=== PATIENT | female | born 1940 | race American Indian/Alaskan Native ===

== ENCOUNTER 2017-12-13 20:10 | Inpatient (IN) | payer MEDICARE, MEDICAID ==
[2017-12-13] MEDS ORDERED: Sodium Chloride 0.9% 1,000 ML IV ONE (20:22)
--- NOTE | 2017-12-13 20:22 | C.PDOC ---
History Of Present Illness The patient presents to the ED after being sent from alf for evaluation of change in mental status which has been worsening for the past 3 weeks. Patient was found to be less responsive today and now presents for further evaluation. Additional information limited secondary to patient's nonverbal status. Time Seen by Provider: 12/13/17 20:19 Chief Complaint (Nursing): Altered Mental Status History/Exam Limitations: Clinical Condition Onset/Duration Of Symptoms: Other (3 weeks ) Onset Of Symptoms: Cannot Confirm Onset Current Symptoms Are (Timing): Still Present Usual Baseline: Non-verbal Exacerbating Factor(s): Unknown Past Medical History Reviewed: Historical Data, Nursing Documentation, Vital Signs Vital Signs: Last Vital Signs Temp 99.2 F 12/13/17 20:55 Pulse 114 H 12/13/17 20:12 Resp 20 12/13/17 20:12 BP 127/73 12/13/17 20:12 Pulse Ox 100 12/13/17 22:27 - Medical History PMH: HTN, Hypercholesterolemia Surgical History: Cholecystectomy Family History: States: No Known Family Hx - Social History Hx Alcohol Use: No Hx Substance Use: No Review Of Systems Review Of Systems: ROS cannot be obtained secondary to pt's inabilty to answer questions. Physical Exam - Physical Exam Appears: Non-toxic, No Acute Distress Skin: Warm, Dry Head: Normacephalic Eye(s): bilateral: Other (Arcus senilis) Oral Mucosa: Dry Teeth: Edentulous Neck: Supple Chest: Symmetrical, No Deformity, No Tenderness Cardiovascular: Rhythm Regular, No Murmur Respiratory: No Rales, Rhonchi (scattered), No Wheezing Gastrointestinal/Abdominal: Soft, Distention, No Guarding, No Rebound, Other ( obese ) Extremity: Normal ROM, Pedal Edema (trace), Capillary Refill (less than 2 seconds ), Other (necrotic healing ulcer on left foot ) Pulses: Left Dorsalis Pedis: Normal, Right Dorsalis Pedis: Normal ED Course And Treatment - Laboratory Results Result Diagrams: 12/13/17 20:33 12/13/17 20:33 ECG: Interpreted By Me, Viewed By Me ECG Rhythm: Sinus Rhythm (108), Nonspecific Changes O2 Sat by Pulse Oximetry: 100 (on RA ) Pulse Ox Interpretation: Normal - Radiology CXR: Interpreted by Me, Viewed By Me Progress Note: Bloodwork, UA, CXR, EKG ordered and reviewed. Aspirin CA, Zosyn IVP, Vancomycin IVP, and IV fluids administered. Disposition Discussed With : Dami Ruth Comment: accepted the pt on his service and took over the care at 9:38 PM Doctor Will See Patient In The: Hospital Counseled Patient/Family Regarding: Studies Performed, Diagnosis - Disposition Disposition: HOSPITALIZED Disposition Time: 20:22 Condition: GUARDED Forms: [facility] (Azeri) - POA Present On Arrival: Poor Glycemic Control, Pressure Ulcer - Clinical Impression Clinical Impression: NSTEMI (non-ST elevated myocardial infarction), Severe dehydration, Renal insufficiency, Decubitus ulcer, heel, left, unstageable - Scribe Statement The provider has reviewed the documentation as recorded by the Scribe (Ashleigh Callahan) Provider Attestation: All medical record entries made by the Scribe were at my direction and personally dictated by me. I have reviewed the chart and agree that the record accurately reflects my personal performance of the history, physical exam, medical decision making, and the department course for this patient. I have also personally directed, reviewed, and agree with the discharge instructions and disposition.
[2017-12-13 20:33] LABS: VENOUS BLOOD GAS BASE EXCESS -4.8 mmol/L (0.0-2.0); VENOUS BLOOD GAS PCO2 38 mmHg (40-60); VENOUS BLOOD GAS PO2 26 mm/Hg (30-55); VENOUS BLOOD PH 7.34 (7.32-7.43)
[2017-12-13 20:38] LABS: BASO # 0.1 K/uL (0.0-0.2); BASO % 0.6 % (0.0-2.0); EOS % 0.3 % (0.0-4.0); HEMOGLOBIN 11.2 g/dL (11.0-16.0); LYMPH % 5.5 % (20.0-40.0); MEAN CELL VOLUME 93.7 fL (81.0-99.0); MEAN CORPUSCULAR HEMOGLOBIN 30.8 pg (27.0-31.0); MEAN CORPUSCULAR HGB CONC 32.8 g/dL (33.0-37.0); MEAN PLATELET VOLUME 9.1 fL (7.2-11.7); MONO # 1.1 K/uL (0.0-0.8); MONO % 6.1 % (0.0-10.0); NEUT # 15.6 K/uL (1.8-7.0); NEUT % 87.5 % (50.0-75.0); PLATELET COUNT 301 K/uL (130-400); RBC 3.63 Mil/uL (3.80-5.20); RED CELL DISTRIBUTION WIDTH 14.1 % (11.5-14.5); WHITE BLOOD COUNT 17.8 K/uL (4.8-10.8)
[2017-12-13 20:46] LABS: INR 1.2; PROTHROMBIN TIME 13.8 SECONDS (9.7-12.2)
[2017-12-13 20:54] LABS: ALB/GLOB RATIO 0.8 (1.0-2.1); ALBUMIN 3.4 g/dL (3.5-5.0); CALCIUM 8.9 mg/dl (8.6-10.4)
[2017-12-13 21:00] LABS: BASOPHIL 1 % (0-2); EOSINOPHIL 1 % (0-4); LYMPHOCYTE 7 % (20-40); MONOCYTE 6 % (0-10); NEUTROPHIL 85 % (50-75); PLATELET ESTIMATE NORMAL (NORMAL); TOTAL CELLS COUNTED 100
[2017-12-13 21:01] LABS: HYPOCHROMIC SLIGHT; LARGE PLATELETS PRESENT
[2017-12-13 21:12] LABS: SQUAMOUS EPITHIAL < 1 /hpf (0-5); URINE BACTERIA OCC (<OCC); URINE BILIRUBIN NEGATIVE (NEGATIVE); URINE BLOOD NEGATIVE (NEGATIVE); URINE CLARITY Hazy (Clear); URINE COLOR Yellow (YELLOW); URINE GLUCOSE (UA) 1+ mg/dL (Normal); URINE LEUKOCYTE ESTERASE TRACE Leu/uL (Negative); URINE NITRATE NEGATIVE (NEGATIVE); URINE PROTEIN NEGATIVE (NEGATIVE); URINE UROBILINOGEN NORMAL mg/dL (0.2-1.0)
[2017-12-13] MEDS ORDERED: Piperacillin/Tazobact 3.375 gm 100 ML IVPB STA (21:26)
[2017-12-13] MEDS ORDERED: Vancomycin 1 GM 1 GM/250 ML BAG IVPB STA (21:26)
[2017-12-13 21:27] LABS: TROPONIN I 0.164 ng/mL (0.00-0.120)
[2017-12-13] MEDS ORDERED: Vancomycin 1 gm/NS 200 ml 1 GM/200 ML BAG IVPB ONE (22:00)
[2017-12-13] MEDS ORDERED: Piperacill/Tazo 3.375gm in Dex 3.375 GM/50 ML BAG IVPB ONE (22:00)
[2017-12-13] MEDS ORDERED: Piperacillin/Tazobact 2.25 GM in Sodium Chloride 100 ML IVPB SCH (22:00)
[2017-12-13] MEDS ORDERED: Dextrose 5%/0.45% NS 1,000 ML IV SCH (22:00)
[2017-12-13] MEDS ORDERED: Home Med 1 UNIT (Atorvastatin [Lipitor] 20 MG) PO SCH (22:00)
[2017-12-13] MEDS ORDERED: Piperacillin/Tazobact 3.375 GM in Sodium Chloride 0.9% 100 ML IVPB ONE (22:00)
[2017-12-13] MEDS ORDERED: (Novolin R) Insulin Human Regular 100 units/ml vial ONE (22:32)
[2017-12-13] MEDS: (Novolin R) Insulin Human Regular 100 units/ml vial SC SCH (22:35)
[2017-12-13] MEDS: (Lantus) Insulin Glargine, Recombinant SC SCH (22:45)
[2017-12-13] MEDS ORDERED: (Lantus) Insulin Glargine, Recombinant SC ONE (22:46)
[2017-12-13] MEDS: Piperacill/Tazo 2.25gm in Dex 2.25 GM/50 ML BAG IVPB SCH (22:50)
[2017-12-13] MEDS: Sodium Chloride 0.45% 1,000 ML IV SCH (23:55)
[2017-12-14 05:32] LABS: CK-MB 3.63 ng/mL (0.0-3.38); TROPONIN I 0.16 ng/mL (0.00-0.120)
[2017-12-14] MEDS: Piperacill/Tazo 2.25gm in Dex 2.25 GM/50 ML BAG IVPB SCH ×3 (07:12→22:19)
[2017-12-14] MEDS: (Novolin R) Insulin Human Regular 100 units/ml vial SC SCH ×5 (08:20→21:39)
[2017-12-14] MEDS: Sodium Chloride 0.45% 1,000 ML IV SCH ×3 (08:30→22:19)
--- NOTE | 2017-12-14 08:57 | RAD ---
Chest x-ray single frontal view History: Altered mental status. Comparison: None available. Findings: No focal infiltrate or effusion. Tortuous aorta. Heart size within normal limits. Degenerative changes in the spine with paravertebral osteophytes. Surgical clips in the right upper abdomen. Upper lobe granulomatous changes. Impression: No focal infiltrate or effusion. Tortuous aorta.
[2017-12-14] MEDS ORDERED: MEGESTROL 20 MG PO SCH (10:00)
[2017-12-14] MEDS ORDERED: VITAMIN C PO SCH (10:00)
[2017-12-14] MEDS ORDERED: Pantoprazole 40 mg EC Tab PO SCH (10:00)
[2017-12-14] MEDS ORDERED: ASPIRIN 81 MG PO SCH (10:00)
[2017-12-14] MEDS ORDERED: PROTEIN HYDROLYS PO SCH ×2 (10:00→18:00)
[2017-12-14] MEDS ORDERED: VITAMIN B COMPLEX PO SCH (10:00)
[2017-12-14] MEDS ORDERED: ASCORBIC ACID 500 MG PO SCH (10:00)
[2017-12-14] MEDS ORDERED: AMINO ACIDS PO SCH ×2 (10:00→18:00)
--- NOTE | 2017-12-14 10:22 | CP.PCM.PN ---
Subjective - Date & Time of Evaluation Date of Evaluation: 12/14/17 Time of Evaluation: 10:49 - Subjective Subjective: PGY2 Medicine Note for Dr. Ruth; all management as per Dr. Ruth This patient was seen and examined at [facility] with son today; she is unable to provide any subjective history taking; however according to son the mom has been waxing and waning with mental status over the past year or two, with the past 2 weeks being the most severe in decline after she was treated for a UTI in her retirement. He voiced his concerns that if something bad were to happen that he does not want any extreme measures to be taken. DNR/DNI entered Objective - Vital Signs/Intake and Output Vital Signs (last 24 hours): Temp Pulse Resp BP Pulse Ox 97.3 F L 96 H 18 130/86 93 L 12/14/17 06:51 12/14/17 06:51 12/14/17 08:36 12/14/17 06:51 12/14/17 06:51 Intake and Output: 12/14/17 12/14/17 06:59 18:59 Intake Total 1200 Output Total 1000 Balance 200 - Medications Medications: Current Medications Heparin Sodium (Porcine) (Heparin) 5,000 units SC Q12 [facility] Last Admin: 12/13/17 22:49 Dose: 5,000 units Home Med (Amino Acids/Protein Hydrolys [Pro-Stat Profile Liquid Packet]) 30 ml PO BID [facility] Home Med (Ascorbic Acid [Vitamin C]) 500 mg PO DAILY [facility] Home Med (Aspirin [Ecotrin]) 81 mg PO DAILY [facility] Home Med (Atorvastatin [Lipitor]) 20 mg PO HS [facility] Last Admin: 12/13/17 22:49 Dose: Not Given Home Med (Megestrol [Megace]) 20 mg PO DAILY [facility] Home Med (Vitamin B Complex & Vitamin C [Strovite]) 1 tab PO DAILY [facility] Piperacillin Sod/Tazobactam Sod (Zosyn 2.25 Gm Iv Premix) 2.25 gm in 50 mls @ 200 mls/hr IVPB Q8H [facility] Last Admin: 12/14/17 07:12 Dose: 200 mls/hr Sodium Chloride (Sodium Chloride 0.45%) 1,000 mls @ 100 mls/hr IV .Q10H [facility] Last Admin: 12/13/17 23:55 Dose: 100 mls/hr Insulin Glargine (Lantus) 10 unit SC [facility] Last Admin: 12/13/17 22:45 Dose: 10 u Insulin Human Regular (Novolin R) 0 unit SC [facility] PRN Reason: Protocol Lisinopril (Zestril) 20 mg PO DAILY [facility] Medroxyprogesterone Acetate (Provera) 10 mg PO DAILY [facility] Metoprolol Tartrate (Lopressor) 25 mg PO BID [facility] Pantoprazole Sodium (Protonix Ec Tab) 40 mg PO DAILY [facility] Pneumococcal Polyvalent Vaccine (Pneumovax 23 Vaccine) 0.5 ml SC .ONCE ONE Stop: 12/17/17 10:08 Senna/Docusate Sodium (Senokot S 50 Mg-8.6 Mg) 1 tab PO DAILY [facility] Trazodone HCl (Desyrel) 25 mg PO [facility] Last Admin: 12/13/17 22:46 Dose: Not Given - Labs Labs: 12/13/17 20:33 12/13/17 20:33 PT 13.8 SECONDS (9.7-12.2) H 12/13/17 20:33 INR 1.2 12/13/17 20:33 APTT 20 SECONDS (21-34) L 12/13/17 20:33 - Constitutional Appears: No Acute Distress, Cachectic, Chronically Ill - Head Exam Head Exam: ATRAUMATIC - Eye Exam Eye Exam: EOMI, Scleral icterus - ENT Exam ENT Exam: Mucous Membranes Dry - Neck Exam Neck Exam: absent: Full ROM, Lymphadenopathy - Respiratory Exam Respiratory Exam: Rales. absent: Clear to Ausculation Bilateral, Rhonchi, Wheezes, Respiratory Distress - Cardiovascular Exam Cardiovascular Exam: Bradycardia, +S1, +S2 - GI/Abdominal Exam GI & Abdominal Exam: Tenderness (LLQ ), Normal Bowel Sounds - Rectal Exam Rectal Exam: Deferred - Extremities Exam Extremities Exam: Full ROM, Joint Swelling. absent: Calf Tenderness - Back Exam Back Exam: absent: CVA tenderness (L), CVA tenderness (R), NORMAL INSPECTION ( multiple sacral wounds) - Neurological Exam Neurological Exam: Awake. absent: Alert, Oriented x3 - Psychiatric Exam Psychiatric exam: absent: Normal Affect - Skin Skin Exam: Warm (diaphoretic ) Assessment and Plan - Assessment and Plan (Free Text) Assessment: 77yo F admitted for AMS AMS -most likely 2/2 to MODS 2/2 to UTI/wound infection -BUN and [employer] Markedly elevated; troponin elevated; patient is non responsive to commands and only responds to pain -patient has many open sores/wounds; will be cultured; f/u -patient is on abx; Vancomycin and Pip/Tazo; will continue -f/u blood cultures -f/u echo Pressure Ulcers -f/u wound care recs -f/u wound culture -c/w abx -reposition every 2 hours Elevated Troponins -most likely 2/2 to MODS -f/u echo -cardiology is on board; Dr. Hutton; thank you for your help Elevated BUN/Creatinine -Dr. Ballard Nephrology; thank you for your help; will f/u recommendations -BUN 102; will continue to trend; patient is very dehydrated clinically Hx of HTN -c/w home meds Hx of DM -c/w insulin dosing -keep BS between 140-180 Hx of HLD -hold home meds for now 2/2 to liver dysfunction Hx of Poor appetite -c/w with appetite increasing medication Hx of dementia like symptoms -son states patient waxes and wanes between making sense and not over the past year or so -recently had UTI in retirement (2 weeks ago) son states has not been same since -patient unable to render care for self and has multiple wounds from pressure sites Proph -DNR/DNI; conversation with son stated he wants nothing extreme done for mother ; palliative care consult placed; Peggy, f/u recs -Pepcid; will hold protonix in lieu of ARF -Heparin SC
[2017-12-14] MEDS: Docusate-Senna 50 mg-8.6 mg Tab PO SCH (10:45)
[2017-12-14 11:18] LABS: BASO # 0.1 K/uL (0.0-0.2); BASO % 0.5 % (0.0-2.0); EOS # 0.2 K/uL (0.0-0.7); EOS % 1.3 % (0.0-4.0); HEMOGLOBIN 10.5 g/dL (11.0-16.0); LYMPH # 0.9 K/uL (1.0-4.3); LYMPH % 5.9 % (20.0-40.0); MEAN CELL VOLUME 93.8 fL (81.0-99.0); MEAN CORPUSCULAR HEMOGLOBIN 31.3 pg (27.0-31.0); MEAN CORPUSCULAR HGB CONC 33.4 g/dL (33.0-37.0); MONO % 6.4 % (0.0-10.0); NEUT # 12.9 K/uL (1.8-7.0); NEUT % 85.9 % (50.0-75.0); PLATELET COUNT 242 K/uL (130-400); RBC 3.34 Mil/uL (3.80-5.20)
[2017-12-14 11:34] LABS: ALB/GLOB RATIO 0.8 (1.0-2.1); CALCIUM 8.5 mg/dl (8.6-10.4)
[2017-12-14 11:40] LABS: BASOPHIL 2 % (0-2); EOSINOPHIL 2 % (0-4); LYMPHOCYTE 8 % (20-40); MONOCYTE 5 % (0-10); NEUTROPHIL 83 % (50-75); TOTAL CELLS COUNTED 100
[2017-12-14 11:41] LABS: ANISOCYTOSIS SLIGHT; HYPOCHROMIC SLIGHT; OVALOCYTES SLIGHT; PLATELET ESTIMATE NORMAL (NORMAL); POIKILOCYTOSIS SLIGHT
[2017-12-14] MEDS: Metoprolol 1 mg/ml Inj IVP SCH ×2 (12:30→18:00)
[2017-12-14 13:21] LABS: CK-MB 5.06 ng/mL (0.0-3.38); TROPONIN I 0.143 ng/mL (0.00-0.120)
--- NOTE | 2017-12-14 14:25 | CP.PCM.PCO ---
Physician Communication Note - Physician Communication Note Physician Communication Note: Family meeting 10 am tomorrow
--- NOTE | 2017-12-14 15:05 | CP.PCM.CON ---
History of Present Illness - History of Present Illness History of Present Illness: Initial Nephrology Consultation: Assessment: Stable Acute Kidney Injury (N17.9) likely due to dehydration/pre-renal state as also evident by Hypernatremia Anemia HTN Hyperglycemia/DM, AMS Plan No acute need for renal replacement therapy at this time. Hypertension control with meds as ordered. hold ACEI/ARB due to YIN Monitor Input/Output, daily weights and renal function with basic metabolic panel continue with 0.45% saline @ 100 ml/hr will check renal sonogram Dose meds/antibiotics for reduced GFR. Avoid fleets enema/magnesium based laxatives. Avoid nephrotoxins/NSAIDs/ iodinated contrast (unless needed emergently) Glycemic control Further work up/management as per primary team Palliative care involved Thanks for allowing me to participate in care of your patient. Will follow patient with you. Please call if any Qs Dr Milo Martin Office: [phone] Chief Complaint; unable reason for consult: YIN HPI: Pt is a 77 F with hx of hypertension (years), dementia, pressure ulcers presented with complaints of AMS and renal consulted for YIN. pt was noted to have dehydration no known OTC/herbal meds or NSAIDs No known recent iodinated contrast exposure. No obvious episodes of low BP. ROS: pt unable to provide any ROS Physical Examination: General Appearance: Comfortable, in no acute respiratory distress, Vitals reviewed and noted as below Head; Atraumatic, normocephalic ENT: unable EYES: unable Neck; supple no lymphadenopathy, no thyromegaly or bruit Lungs: Normal respiratory rate/effort. Breath sounds bilateral equal and clear Heart: Normal rate. s1s2 normal. No rub or gallop. Extremities: no edema. No varicose veins Neurological: Patient is unresponsive to commands. has contractures in extremities. hx of dementia Skin: Warm and dry. Normal turgor. No rash. Palpitation: Normal elasticity for age Abdomen: Abdomen is soft. Bowel sounds +. There is no abdominal tenderness, no guarding/rigidity no organomegaly Psych: unable MSK: no joint tenderness or swelling. : kidney or bladder not palpable. has recinos Labs/imaging reviewed. Past medical history, past surgical history, family history, social history, allergy reviewed and noted as below Family hx: no hx of CKD. Rest non-contributory Past Patient History - Past Medical History & Family History Past Medical History?: Yes - Past Social History Smoking Status: Never Smoked - CARDIAC Hx Hypercholesterolemia: Yes Hx Hypertension: Yes - PULMONARY Hx Respiratory Disorders: No - NEUROLOGICAL Hx Dementia: Yes (son reports detention staff advised him) - HEENT Hx Cataracts: Yes - RENAL Hx Chronic Kidney Disease: No - ENDOCRINE/METABOLIC Hx Diabetes Mellitus Type 2: Yes - HEMATOLOGICAL/ONCOLOGICAL Hx Shingles: Yes - INTEGUMENTARY Hx Dermatological Problems: No - MUSCULOSKELETAL/RHEUMATOLOGICAL Hx Musculoskeletal Disorders: Yes (LEFT SHOULDER PAIN) Hx Falls: Yes - GASTROINTESTINAL Hx Gall Bladder Disease: Yes - GENITOURINARY/GYNECOLOGICAL Hx Incontinence: Yes Hx Urinary Tract Infection: Yes - PSYCHIATRIC Hx Substance Use: No - SURGICAL HISTORY Hx Cholecystectomy: Yes - ANESTHESIA Hx Anesthesia: Yes Hx Anesthesia Reactions: No Hx Malignant Hyperthermia: No Meds Allergies/Adverse Reactions: Allergies Allergy/AdvReac Type Severity Reaction Status Date / Time No Known Allergies Allergy Verified 12/13/17 20:12 - Medications Medications: Current Medications Famotidine (Pepcid) 20 mg IVP DAILY [facility] Last Admin: 12/14/17 10:45 Dose: Not Given Heparin Sodium (Porcine) (Heparin) 5,000 units SC Q12 [facility] Last Admin: 12/14/17 10:45 Dose: Not Given Home Med (Amino Acids/Protein Hydrolys [Pro-Stat Profile Liquid Packet]) 30 ml PO BID [facility] Last Admin: 12/14/17 10:45 Dose: Not Given Home Med (Ascorbic Acid [Vitamin C]) 500 mg PO DAILY [facility] Last Admin: 12/14/17 10:45 Dose: Not Given Home Med (Aspirin [Ecotrin]) 81 mg PO DAILY [facility] Last Admin: 12/14/17 10:45 Dose: Not Given Home Med (Atorvastatin [Lipitor]) 20 mg PO HS [facility] Last Admin: 12/13/17 22:49 Dose: Not Given Home Med (Megestrol [Megace]) 20 mg PO DAILY [facility] Last Admin: 12/14/17 10:45 Dose: Not Given Home Med (Vitamin B Complex & Vitamin C [Strovite]) 1 tab PO DAILY [facility] Last Admin: 12/14/17 10:45 Dose: Not Given Hydralazine HCl (Apresoline) 10 mg IVP Q6H PRN PRN Reason: high blood pressure Piperacillin Sod/Tazobactam Sod (Zosyn 2.25 Gm Iv Premix) 2.25 gm in 50 mls @ 200 mls/hr IVPB Q8H [facility] Last Admin: 12/14/17 07:12 Dose: 200 mls/hr Sodium Chloride (Sodium Chloride 0.45%) 1,000 mls @ 100 mls/hr IV .Q10H [facility] Last Admin: 12/14/17 11:36 Dose: 100 mls/hr Insulin Glargine (Lantus) 10 unit SC [facility] Last Admin: 12/13/17 22:45 Dose: 10 u Insulin Human Regular (Novolin R) 0 unit SC [facility] PRN Reason: Protocol Last Admin: 12/14/17 12:24 Dose: 6 unit Medroxyprogesterone Acetate (Provera) 10 mg PO DAILY [facility] Last Admin: 12/14/17 10:45 Dose: Not Given Metoprolol Tartrate (Lopressor) 25 mg PO BID [facility] Last Admin: 12/14/17 10:45 Dose: Not Given Metoprolol Tartrate (Lopressor) 5 mg IVP BID [facility] Last Admin: 12/14/17 12:30 Dose: 5 mg Pneumococcal Polyvalent Vaccine (Pneumovax 23 Vaccine) 0.5 ml SC .ONCE ONE Stop: 12/17/17 10:08 Senna/Docusate Sodium (Senokot S 50 Mg-8.6 Mg) 1 tab PO DAILY [facility] Last Admin: 12/14/17 10:45 Dose: Not Given Trazodone HCl (Desyrel) 25 mg PO [facility] Last Admin: 12/13/17 22:46 Dose: Not Given Results - Vital Signs Recent Vital Signs: Last Vital Signs Temp 98.0 F 12/14/17 07:00 Pulse 99 H 12/14/17 12:23 Resp 18 12/14/17 08:36 BP 121/76 12/14/17 12:23 Pulse Ox 93 L 12/14/17 07:00 - Labs Result Diagrams: 12/14/17 11:10 12/14/17 11:10 Labs: Laboratory Results - last 24 hr 12/13/17 12/13/17 12/13/17 20:25 20:33 20:33 WBC 17.8 H RBC 3.63 L Hgb 11.2 Hct 34.0 MCV 93.7 MCH 30.8 MCHC 32.8 L RDW 14.1 Plt Count 301 MPV 9.1 Neut % (Auto) 87.5 H Lymph % (Auto) 5.5 L [place] % (Auto) 6.1 Eos % (Auto) 0.3 Baso % (Auto) 0.6 Neut # (Auto) 15.6 H Lymph # (Auto) 1.0 [place] # (Auto) 1.1 H Eos # (Auto) 0.0 Baso # (Auto) 0.1 Neutrophils % (Manual) 85 H Lymphocytes % (Manual) 7 L Monocytes % (Manual) 6 Eosinophils % (Manual) 1 Basophils % (Manual) 1 Platelet Estimate Normal Large Platelets Present Hypochromasia (manual) Slight Poikilocytosis (manual Anisocytosis (manual) Ovalocytes PT INR APTT pO2 26 L VBG pH 7.34 VBG pCO2 38 L VBG HCO3 19.7 VBG Total CO2 21.7 L VBG O2 Sat (Calc) 47.8 VBG Base Excess -4.8 L VBG Potassium 4.6 Sodium 150.0 H 148 Chloride 121.0 H 114 H Glucose 367 H Lactate 2.1 Potassium 4.6 Carbon Dioxide 19 L Anion Gap 20 BUN 109 H* Creatinine 2.6 H Est GFR ( Amer) 22 Est GFR (Non-Af Amer) 18 POC Glucose (mg/dL) Random Glucose 358 H Calcium 8.9 Total Bilirubin 0.7 AST 39 H ALT 49 Alkaline Phosphatase 127 H Ammonia Total Creatine Kinase CK-MB (Mass) Troponin I 0.1640 H* Total Protein 7.8 Albumin 3.4 L Globulin 4.3 H Albumin/Globulin Ratio 0.8 L Triglycerides Cholesterol LDL Cholesterol Direct HDL Cholesterol Free T4 TSH 3rd Generation Venous Blood Potassium 4.6 Urine Color Urine Clarity Urine pH Ur Specific [place] Urine Protein Urine Glucose (UA) Urine Ketones Urine Blood Urine Nitrate Urine Bilirubin Urine Urobilinogen Ur Leukocyte Esterase Urine WBC (Auto) Urine RBC (Auto) Ur Squamous Epith Cells Urine Bacteria 12/13/17 12/13/17 12/13/17 20:33 20:55 21:00 WBC RBC Hgb Hct MCV MCH MCHC RDW Plt Count MPV Neut % (Auto) Lymph % (Auto) [place] % (Auto) Eos % (Auto) Baso % (Auto) Neut # (Auto) Lymph # (Auto) [place] # (Auto) Eos # (Auto) Baso # (Auto) Neutrophils % (Manual) Lymphocytes % (Manual) Monocytes % (Manual) Eosinophils % (Manual) Basophils % (Manual) Platelet Estimate Large Platelets Hypochromasia (manual) Poikilocytosis (manual Anisocytosis (manual) Ovalocytes PT 13.8 H INR 1.2 APTT 20 L pO2 VBG pH VBG pCO2 VBG HCO3 VBG Total CO2 VBG O2 Sat (Calc) VBG Base Excess VBG Potassium Sodium Chloride Glucose Lactate Potassium Carbon Dioxide Anion Gap BUN Creatinine Est GFR ( Amer) Est GFR (Non-Af Amer) POC Glucose (mg/dL) Random Glucose Calcium Total Bilirubin AST ALT Alkaline Phosphatase Ammonia < 9 L Total Creatine Kinase CK-MB (Mass) Troponin I Total Protein Albumin Globulin Albumin/Globulin Ratio Triglycerides Cholesterol LDL Cholesterol Direct HDL Cholesterol Free T4 TSH 3rd Generation Venous Blood Potassium Urine Color Yellow Urine Clarity Hazy Urine pH 5.0 Ur Specific [place] 1.014 Urine Protein Negative Urine Glucose (UA) 1+ Urine Ketones Negative Urine Blood Negative Urine Nitrate Negative Urine Bilirubin Negative Urine Urobilinogen Normal Ur Leukocyte Esterase Trace Urine WBC (Auto) 6 H Urine RBC (Auto) 3 Ur Squamous Epith Cells < 1 Urine Bacteria Occ H 12/13/17 12/14/17 12/14/17 22:14 01:45 04:46 WBC RBC Hgb Hct MCV MCH MCHC RDW Plt Count MPV Neut % (Auto) Lymph % (Auto) [place] % (Auto) Eos % (Auto) Baso % (Auto) Neut # (Auto) Lymph # (Auto) [place] # (Auto) Eos # (Auto) Baso # (Auto) Neutrophils % (Manual) Lymphocytes % (Manual) Monocytes % (Manual) Eosinophils % (Manual) Basophils % (Manual) Platelet Estimate Large Platelets Hypochromasia (manual) Poikilocytosis (manual Anisocytosis (manual) Ovalocytes PT INR APTT pO2 VBG pH VBG pCO2 VBG HCO3 VBG Total CO2 VBG O2 Sat (Calc) VBG Base Excess VBG Potassium Sodium Chloride Glucose Lactate Potassium Carbon Dioxide Anion Gap BUN Creatinine Est GFR ( Amer) Est GFR (Non-Af Amer) POC Glucose (mg/dL) 402 H* 346 H Random Glucose Calcium Total Bilirubin AST ALT Alkaline Phosphatase Ammonia Total Creatine Kinase 688 H CK-MB (Mass) 3.63 H Troponin I 0.1600 H* Total Protein Albumin Globulin Albumin/Globulin Ratio Triglycerides Cholesterol LDL Cholesterol Direct HDL Cholesterol Free T4 TSH 3rd Generation Venous Blood Potassium Urine Color Urine Clarity Urine pH Ur Specific [place] Urine Protein Urine Glucose (UA) Urine Ketones Urine Blood Urine Nitrate Urine Bilirubin Urine Urobilinogen Ur Leukocyte Esterase Urine WBC (Auto) Urine RBC (Auto) Ur Squamous Epith Cells Urine Bacteria 12/14/17 12/14/17 12/14/17 07:04 11:10 11:10 WBC 15.0 H RBC 3.34 L Hgb 10.5 L Hct 31.3 L MCV 93.8 MCH 31.3 H MCHC 33.4 RDW 14.0 Plt Count 242 MPV 9.0 Neut % (Auto) 85.9 H Lymph % (Auto) 5.9 L [place] % (Auto) 6.4 Eos % (Auto) 1.3 Baso % (Auto) 0.5 Neut # (Auto) 12.9 H Lymph # (Auto) 0.9 L [place] # (Auto) 1.0 H Eos # (Auto) 0.2 Baso # (Auto) 0.1 Neutrophils % (Manual) 83 H Lymphocytes % (Manual) 8 L Monocytes % (Manual) 5 Eosinophils % (Manual) 2 Basophils % (Manual) 2 Platelet Estimate Normal Large Platelets Hypochromasia (manual) Slight Poikilocytosis (manual Slight Anisocytosis (manual) Slight Ovalocytes Slight PT INR APTT pO2 VBG pH VBG pCO2 VBG HCO3 VBG Total CO2 VBG O2 Sat (Calc) VBG Base Excess VBG Potassium Sodium 150 H Chloride 116 H Glucose Lactate Potassium 3.9 Carbon Dioxide 22 Anion Gap 16 BUN 91 H Creatinine 2.0 H Est GFR ( Amer) 29 Est GFR (Non-Af Amer) 24 POC Glucose (mg/dL) 273 H Random Glucose 303 H Calcium 8.5 L Total Bilirubin 0.5 AST 37 H ALT 40 Alkaline Phosphatase 123 Ammonia Total Creatine Kinase CK-MB (Mass) Troponin I Total Protein 6.7 Albumin 3.0 L Globulin 3.8 Albumin/Globulin Ratio 0.8 L Triglycerides 118 Cholesterol 119 LDL Cholesterol Direct 50 HDL Cholesterol 19 L Free T4 TSH 3rd Generation 1.24 Venous Blood Potassium Urine Color Urine Clarity Urine pH Ur Specific [place] Urine Protein Urine Glucose (UA) Urine Ketones Urine Blood Urine Nitrate Urine Bilirubin Urine Urobilinogen Ur Leukocyte Esterase Urine WBC (Auto) Urine RBC (Auto) Ur Squamous Epith Cells Urine Bacteria 02/15/18 02/15/18 11:10 12:07 WBC RBC Hgb Hct MCV MCH MCHC RDW Plt Count MPV Neut % (Auto) Lymph % (Auto) [place] % (Auto) Eos % (Auto) Baso % (Auto) Neut # (Auto) Lymph # (Auto) [place] # (Auto) Eos # (Auto) Baso # (Auto) Neutrophils % (Manual) Lymphocytes % (Manual) Monocytes % (Manual) Eosinophils % (Manual) Basophils % (Manual) Platelet Estimate Large Platelets Hypochromasia (manual) Poikilocytosis (manual Anisocytosis (manual) Ovalocytes PT INR APTT pO2 VBG pH VBG pCO2 VBG HCO3 VBG Total CO2 VBG O2 Sat (Calc) VBG Base Excess VBG Potassium Sodium Chloride Glucose Lactate Potassium Carbon Dioxide Anion Gap BUN Creatinine Est GFR ( Amer) Est GFR (Non-Af Amer) POC Glucose (mg/dL) 293 H Random Glucose Calcium Total Bilirubin AST ALT Alkaline Phosphatase Ammonia Total Creatine Kinase CK-MB (Mass) Troponin I Total Protein Albumin Globulin Albumin/Globulin Ratio Triglycerides Cholesterol LDL Cholesterol Direct HDL Cholesterol Free T4 1.52 TSH 3rd Generation Venous Blood Potassium Urine Color Urine Clarity Urine pH Ur Specific [place] Urine Protein Urine Glucose (UA) Urine Ketones Urine Blood Urine Nitrate Urine Bilirubin Urine Urobilinogen Ur Leukocyte Esterase Urine WBC (Auto) Urine RBC (Auto) Ur Squamous Epith Cells Urine Bacteria
[2017-12-14] MEDS: traZODone 25 mg Tab PO SCH (21:14)
[2017-12-14] MEDS: (Lantus) Insulin Glargine, Recombinant SC SCH (21:39)
--- NOTE | 2017-12-14 21:52 | CP.PCM.PN ---
Subjective - Date & Time of Evaluation Date of Evaluation: 12/14/17 Time of Evaluation: 18:45 - Subjective Subjective: This patient was seen and examined according to son the mom has been waxing and waning with mental status over the past year or two, with the past 2 weeks being the most severe in decline after she was treated for a UTI in her alf. He voiced his concerns that if something bad were to happen that he does not want any extreme measures to be taken. DNR/DNI entered Physical Examination - Constitutional Appears: No Acute Distress, Cachectic, Chronically Ill - Head Exam Head Exam: ATRAUMATIC - Eye Exam Eye Exam: EOMI, Scleral icterus - ENT Exam ENT Exam: Mucous Membranes Dry - Neck Exam Neck Exam: absent: Full ROM, Lymphadenopathy - Respiratory Exam Respiratory Exam: Rales. absent: Clear to Ausculation Bilateral, Rhonchi, Wheezes, Respiratory Distress - Cardiovascular Exam Cardiovascular Exam: Bradycardia, +S1, +S2 - GI/Abdominal Exam GI & Abdominal Exam: Tenderness (LLQ ), Normal Bowel Sounds - Rectal Exam Rectal Exam: Deferred - Extremities Exam Extremities Exam: Full ROM, Joint Swelling. absent: Calf Tenderness - Back Exam Back Exam: absent: CVA tenderness (L), CVA tenderness (R), NORMAL INSPECTION ( multiple sacral wounds) - Neurological Exam Neurological Exam: Awake. absent: Alert, Oriented x3 - Psychiatric Exam Psychiatric exam: absent: Normal Affect - Skin Skin Exam: Warm (diaphoretic ) Objective - Vital Signs/Intake and Output Vital Signs (last 24 hours): Temp Pulse Resp BP Pulse Ox 98 F 98 H 20 123/71 96 12/14/17 16:53 12/14/17 16:53 12/14/17 16:53 12/14/17 16:53 12/14/17 16:53 Intake and Output: 12/14/17 12/15/17 18:59 06:59 Intake Total 850 Output Total 500 Balance 350 - Medications Medications: Current Medications Ascorbic Acid (Vitamin C 500 Mg Tab) 500 mg PO DAILY [facility] Aspirin (Ecotrin) 81 mg PO DAILY [facility] Famotidine (Pepcid) 20 mg IVP DAILY [facility] Last Admin: 12/14/17 10:45 Dose: Not Given Heparin Sodium (Porcine) (Heparin) 5,000 units SC Q12 [facility] Last Admin: 12/14/17 10:45 Dose: Not Given Hydralazine HCl (Apresoline) 10 mg IVP Q6H PRN PRN Reason: high blood pressure Piperacillin Sod/Tazobactam Sod (Zosyn 2.25 Gm Iv Premix) 2.25 gm in 50 mls @ 200 mls/hr IVPB Q8H [facility] Last Admin: 12/14/17 14:11 Dose: 200 mls/hr Sodium Chloride (Sodium Chloride 0.45%) 1,000 mls @ 100 mls/hr IV .Q10H [facility] Last Admin: 12/14/17 11:36 Dose: 100 mls/hr Insulin Glargine (Lantus) [address] [facility] Last Admin: 12/14/17 21:39 Dose: Not Given Insulin Human Regular (Novolin R) 0 unit SC [facility] PRN Reason: Protocol Last Admin: 12/14/17 21:39 Dose: Not Given Medroxyprogesterone Acetate (Provera) 10 mg PO DAILY [facility] Last Admin: 12/14/17 10:45 Dose: Not Given Megestrol Acetate (Megace) 20 mg PO DAILY [facility] Metoprolol Tartrate (Lopressor) 25 mg PO BID [facility] Last Admin: 12/14/17 17:13 Dose: Not Given Metoprolol Tartrate (Lopressor) 5 mg IVP BID [facility] Last Admin: 12/14/17 18:00 Dose: 5 mg Pneumococcal Polyvalent Vaccine (Pneumovax 23 Vaccine) 0.5 ml SC .ONCE ONE Stop: 12/17/17 10:08 Rosuvastatin Calcium (Crestor) [address] [facility] Last Admin: 12/14/17 21:14 Dose: Not Given Senna/Docusate Sodium (Senokot S 50 Mg-8.6 Mg) 1 tab PO DAILY [facility] Last Admin: 12/14/17 10:45 Dose: Not Given Trazodone HCl (Desyrel) [address] [facility] Last Admin: 12/14/17 21:14 Dose: Not Given Vitamin B Complex/Vitamin C (Berocca) 1 tab PO DAILY [facility] - Labs Labs: 12/14/17 11:10 12/14/17 11:10 PT 13.8 SECONDS (9.7-12.2) H 12/13/17 20:33 INR 1.2 12/13/17 20:33 APTT 20 SECONDS (21-34) L 12/13/17 20:33 Assessment and Plan - Assessment and Plan (Free Text) Assessment: AMS -most likely 2/2 to MODS 2/2 to UTI/wound infection -BUN and Super[employer]ails Markedly elevated; troponin elevated; patient is non responsive to commands and only responds to pain -patient has many open sores/wounds; will be cultured; f/u -patient is on abx; Vancomycin and Pip/Tazo; will continue -f/u blood cultures Pressure Ulcers -f/u wound care recs -f/u wound culture -c/w abx -reposition every 2 hours Elevated Troponins -most likely 2/2 to MODS -f/u echo Elevated BUN/Creatinine -Dr. Ballard Nephrology; thank you for your help; will f/u recommendations -BUN 102; will continue to trend; patient is very dehydrated clinically Hx of HTN -c/w home meds Hx of DM -c/w insulin dosing -keep BS between 140-180 Hx of HLD -hold home meds for now 2/2 to liver dysfunction Hx of Poor appetite -c/w with appetite increasing medication Hx of dementia like symptoms -son states patient waxes and wanes between making sense and not over the past year or so -recently had UTI in alf (2 weeks ago) son states has not been same since -patient unable to render care for self and has multiple wounds from pressure sites Proph -DNR/DNI; conversation with son stated he wants nothing extreme done for mother ; palliative care consult placed; Peggy, f/u recs -Pepcid; will hold protonix in lieu of ARF -Heparin [place]
[2017-12-15] MEDS: Piperacill/Tazo 2.25gm in Dex 2.25 GM/50 ML BAG IVPB SCH ×3 (05:48→22:02)
[2017-12-15 07:14] LABS: SQUAMOUS EPITHIAL 9 /hpf (0-5); URINE BACTERIA RARE (<OCC); URINE BILIRUBIN NEGATIVE (NEGATIVE); URINE BLOOD NEGATIVE (NEGATIVE); URINE CLARITY Hazy (Clear); URINE COLOR Yellow (YELLOW); URINE GLUCOSE (UA) NORMAL (Normal); URINE HYALINE CAST 0-2 /lpf (0-2); URINE LEUKOCYTE ESTERASE 3+ Leu/uL (Negative); URINE NITRATE NEGATIVE (NEGATIVE); URINE PROTEIN NEGATIVE (NEGATIVE); URINE UROBILINOGEN NORMAL mg/dL (0.2-1.0); WBC CLUMPS FEW /hpf
[2017-12-15 07:24] LABS: BASO # 0.1 K/uL (0.0-0.2); BASO % 0.6 % (0.0-2.0); EOS # 0.2 K/uL (0.0-0.7); EOS % 1.8 % (0.0-4.0); HEMOGLOBIN 9.9 g/dL (11.0-16.0); LYMPH % 7.6 % (20.0-40.0); MEAN CELL VOLUME 93.1 fL (81.0-99.0); MEAN CORPUSCULAR HEMOGLOBIN 31.3 pg (27.0-31.0); MEAN CORPUSCULAR HGB CONC 33.6 g/dL (33.0-37.0); MEAN PLATELET VOLUME 8.7 fL (7.2-11.7); MONO % 7.9 % (0.0-10.0); NEUT # 10.7 K/uL (1.8-7.0); NEUT % 82.1 % (50.0-75.0); PLATELET COUNT 238 K/uL (130-400); RBC 3.18 Mil/uL (3.80-5.20); RED CELL DISTRIBUTION WIDTH 13.9 % (11.5-14.5); WHITE BLOOD COUNT 13.1 K/uL (4.8-10.8)
[2017-12-15 07:44] LABS: ALB/GLOB RATIO 0.8 (1.0-2.1); ALBUMIN 2.8 g/dL (3.5-5.0); CALCIUM 8.5 mg/dl (8.6-10.4)
--- NOTE | 2017-12-15 08:18 | HP ---
HISTORY OF PRESENT ILLNESS: This is a 77-year-old female came in with altered mental status, weakness, fatigue, dehydration. The patient has UTI and multiple wounds. The patient came to the ER, was evaluated and advised admission. PHYSICAL EXAMINATION GENERAL: The patient is awake and confused. VITAL SIGNS: Temperature is 98 and pulse of 90. HEENT: Within normal limits. NECK: Supple. CHEST: Symmetrical. HEART: Regular. ABDOMEN: Soft. EXTREMITIES: No edema. IMPRESSION: Multiple wounds, altered mental status, sepsis, urinary tract infection, dehydration. The patient advised antibiotics, and supportive care. Dami Ruth MD
[2017-12-15] MEDS: (Novolin R) Insulin Human Regular 100 units/ml vial SC SCH ×4 (08:45→22:01)
--- NOTE | 2017-12-15 10:09 | CP.PCM.PN ---
Subjective - Date & Time of Evaluation Date of Evaluation: 12/15/17 Time of Evaluation: 13:33 - Subjective Subjective: PGY2 Medicine note for Dr. Ruth; all management as per Dr. Ruth Patient is much more awake today and will answer simple yes and no questions; hwoever is still not ANox3; son met with Peggy and decided on which route of tx he wants for his mom which includes only IV tx for infections and no aggressive treatments and is DNR/DNI. Objective - Vital Signs/Intake and Output Vital Signs (last 24 hours): Temp Pulse Resp BP Pulse Ox 98.3 F 92 H 20 111/70 100 12/15/17 07:40 12/15/17 08:09 12/15/17 07:40 12/15/17 07:40 12/15/17 07:40 Intake and Output: 12/15/17 12/15/17 06:59 18:59 Intake Total 1600 Output Total 1000 Balance 600 - Medications Medications: Current Medications Ascorbic Acid (Vitamin C 500 Mg Tab) 500 mg PO DAILY [facility] Aspirin (Ecotrin) 81 mg PO DAILY [facility] Famotidine (Pepcid) 20 mg IVP DAILY [facility] Last Admin: 12/14/17 10:45 Dose: Not Given Heparin Sodium (Porcine) (Heparin) 5,000 units SC Q12 [facility] Last Admin: 12/14/17 22:19 Dose: 5,000 units Hydralazine HCl (Apresoline) 10 mg IVP Q6H PRN PRN Reason: high blood pressure Piperacillin Sod/Tazobactam Sod (Zosyn 2.25 Gm Iv Premix) 2.25 gm in 50 mls @ 200 mls/hr IVPB Q8H [facility] Last Admin: 12/15/17 05:48 Dose: 200 mls/hr Sodium Chloride (Sodium Chloride 0.45%) 1,000 mls @ 100 mls/hr IV .Q10H [facility] Stop: 12/16/17 23:55 Insulin Glargine (Lantus) 10 unit SC HS [facility] Last Admin: 12/14/17 21:39 Dose: Not Given Insulin Human Regular (Novolin R) 0 unit SC [facility] PRN Reason: Protocol Last Admin: 12/15/17 08:45 Dose: Not Given Medroxyprogesterone Acetate (Provera) 10 mg PO DAILY [facility] Last Admin: 12/14/17 10:45 Dose: Not Given Megestrol Acetate (Megace) 20 mg PO DAILY [facility] Metoprolol Tartrate (Lopressor) 25 mg PO BID [facility] Last Admin: 12/14/17 17:13 Dose: Not Given Metoprolol Tartrate (Lopressor) 5 mg IVP BID [facility] Last Admin: 12/14/17 18:00 Dose: 5 mg Pneumococcal Polyvalent Vaccine (Pneumovax 23 Vaccine) 0.5 ml SC .ONCE ONE Stop: 12/17/17 10:08 Rosuvastatin Calcium (Crestor) 10 mg PO [facility] Last Admin: 12/14/17 21:14 Dose: Not Given Senna/Docusate Sodium (Senokot S 50 Mg-8.6 Mg) 1 tab PO DAILY [facility] Last Admin: 12/14/17 10:45 Dose: Not Given Trazodone HCl (Desyrel) 25 mg PO [facility] Last Admin: 12/14/17 21:14 Dose: Not Given Vitamin B Complex/Vitamin C (Berocca) 1 tab PO DAILY [facility] - Labs Labs: 12/15/17 07:05 12/15/17 07:05 PT 13.8 SECONDS (9.7-12.2) H 12/13/17 20:33 INR 1.2 12/13/17 20:33 APTT 20 SECONDS (21-34) L 12/13/17 20:33 - Constitutional Appears: Non-toxic - Head Exam Head Exam: ATRAUMATIC - Eye Exam Eye Exam: EOMI - ENT Exam ENT Exam: Mucous Membranes Moist - Neck Exam Neck Exam: absent: Lymphadenopathy - Respiratory Exam Respiratory Exam: Clear to Ausculation Bilateral - Cardiovascular Exam Cardiovascular Exam: REGULAR RHYTHM - GI/Abdominal Exam GI & Abdominal Exam: Normal Bowel Sounds - Extremities Exam Extremities Exam: absent: Calf Tenderness - Back Exam Back Exam: absent: CVA tenderness (L), CVA tenderness (R) - Neurological Exam Neurological Exam: Alert, Awake - Skin Skin Exam: Warm Assessment and Plan - Assessment and Plan (Free Text) Assessment: 77yo F admitted for AMS AMS -most likely 2/2 to MODS 2/2 to UTI/wound infection -BUN and Land Law [employer] Markedly elevated; troponin elevated; patient is non responsive to commands and only responds to pain -patient has many open sores/wounds; will be cultured; f/u -patient is on abx; Vancomycin and Pip/Tazo; will continue -blood cultures negative to date -f/u echo Pressure Ulcers -f/u wound care recs -f/u wound culture -c/w abx -reposition every 2 hours Elevated Troponins -most likely 2/2 to MODS -f/u echo -cardiology is on board; Dr. Hutton; thank you for your help Elevated BUN/Creatinine -Dr. Ballard Nephrology; thank you for your help; will f/u recommendations -BUN decreased -will change fluid to 1/2 normal saline given increasing sodium levels; will trend -f/u renal US Hx of HTN -c/w home meds Hx of DM -c/w insulin dosing -keep BS between 140-180 Hx of HLD -hold home meds for now 2/2 to liver dysfunction Hx of Poor appetite -c/w with appetite increasing medication Hx of dementia like symptoms -son states patient waxes and wanes between making sense and not over the past year or so -recently [place] UTI in [place] (2 weeks ago) son states has not been same since -patient unable to render care for self and has multiple wounds from pressure sites Proph -DNR/DNI; conversation with son stated he wants nothing extreme done for mother ; palliative care consult placed; Peggy, f/u recs; family meeting today 10am -Pepcid; will hold protonix in lieu of ARF -Heparin [place]: Poor All management as per Dr. Ruth
[2017-12-15] MEDS ORDERED: Sodium Chloride 0.45% 1,000 ML IV SCH (10:15)
[2017-12-15] MEDS ORDERED: Potassium Chloride 20 mEq ER Tab PO ONE (10:30)
[2017-12-15 10:37] LABS: EOSINOPHIL 4 % (0-4); LYMPHOCYTE 8 % (20-40); MONOCYTE 5 % (0-10); NEUTROPHIL 83 % (50-75); PLATELET ESTIMATE NORMAL (NORMAL); TOTAL CELLS COUNTED 100
[2017-12-15] MEDS: Megestrol Acetate 40 mg/ml Cup PO SCH (10:52)
[2017-12-15] MEDS: Vitamin B Complex/Vitamin C Tab PO SCH (10:53)
[2017-12-15] MEDS: Docusate-Senna 50 mg-8.6 mg Tab PO SCH (10:55)
--- NOTE | 2017-12-15 11:01 | US ---
PROCEDURE: Ultrasound of the Kidneys HISTORY: YIN COMPARISON: None available. TECHNIQUE: Sonogram of the kidneys. FINDINGS: RIGHT KIDNEY: Measures: 10.6 x 5.1 x 5.8 cm. Upper pole cyst measuring 2.4 x 2.3 x 2.2 cm. Mid pole cyst with thin avascular septation measuring 1.6 x 1.4 x 1.8 cm. Normal in size, contour and echogenicity. No stone, solid mass lesion or hydronephrosis visualized. LEFT KIDNEY: Measures: 9.9 x 4.9 x 4.3 cm. Midpole cyst measuring 0.4 x 0.3 x 0.4 cm. Normal in size, contour and echogenicity. No stone, solid mass lesion or hydronephrosis visualized. OTHER FINDINGS: Bladder minimally distended around a Gonsalez catheter. IMPRESSION: Bilateral renal cysts.
[2017-12-15] MEDS: Metoprolol 1 mg/ml Inj IVP SCH ×2 (11:25→21:04)
[2017-12-15] MEDS: Potassium Ch 20mEq in D5-1/2NS 1,000 ML IV SCH (13:49)
--- NOTE | 2017-12-15 15:04 | CP.PCM.PN ---
Subjective - Date & Time of Evaluation Date of Evaluation: 12/15/17 Time of Evaluation: 15:03 - Subjective Subjective: Nephrology Consultation: Assessment: Stable Acute Kidney Injury (N17.9) likely due to dehydration/pre-renal state as also evident by Hypernatremia Anemia HTN Hyperglycemia/DM, AMS b/l renal cysts Plan No acute need for renal replacement therapy at this time. Hypertension control with meds as ordered. hold ACEI/ARB due to YIN Monitor Input/Output, daily weights and renal function with basic metabolic panel continue with 0.45% saline @ 100 ml/hr supplement electrolytes as needed Dose meds/antibiotics for improved GFR. Avoid fleets enema/magnesium based laxatives. Avoid nephrotoxins/NSAIDs/ iodinated contrast (unless needed emergently) Glycemic control Further work up/management as per primary team Palliative care involved Thanks for allowing me to participate in care of your patient. Will follow patient with you. Please call if any Qs. d/w family. had d/w team Dr Milo Martin Office: [phone] Chief Complaint; unable reason for consult: YIN HPI: Pt is a 77 F with hx of hypertension (years), dementia, pressure ulcers presented with complaints of AMS and renal consulted for YIN. pt was noted to have dehydration no known OTC/herbal meds or NSAIDs No known recent iodinated contrast exposure. No obvious episodes of low BP. ROS: pt unable to provide any ROS Physical Examination: family bedside General Appearance: Comfortable, in no acute respiratory distress, Vitals reviewed and noted as below Head; Atraumatic, normocephalic ENT: unable EYES: unable Neck; supple no lymphadenopathy, no thyromegaly or bruit Lungs: Normal respiratory rate/effort. Breath sounds bilateral equal and clear Heart: Normal rate. s1s2 normal. No rub or gallop. Extremities: no edema. No varicose veins Neurological: Patient is awake. has contractures in extremities. hx of dementia Skin: Warm and dry. Normal turgor. No rash. Palpitation: Normal elasticity for age Abdomen: Abdomen is soft. Bowel sounds +. There is no abdominal tenderness, no guarding/rigidity no organomegaly Psych: unable MSK: no joint tenderness or swelling. : kidney or bladder not palpable. has recinos Labs/imaging reviewed. Past medical history, past surgical history, family history, social history, allergy reviewed and noted as below Family hx: no hx of CKD. Rest non-contributory Objective - Vital Signs/Intake and Output Vital Signs (last 24 hours): Temp Pulse Resp BP Pulse Ox 98.3 F 92 H 18 136/72 100 12/15/17 07:40 12/15/17 11:00 12/15/17 11:00 12/15/17 11:00 12/15/17 11:00 Intake and Output: 12/15/17 12/15/17 06:59 18:59 Intake Total 1600 Output Total 1000 1450 Balance 600 -1450 - Medications Medications: Current Medications Ascorbic Acid (Vitamin C 500 Mg Tab) 500 mg PO DAILY [facility] Last Admin: 12/15/17 10:53 Dose: 500 mg Aspirin (Ecotrin) 81 mg PO DAILY [facility] Last Admin: 12/15/17 10:57 Dose: 81 mg Famotidine (Pepcid) 20 mg IVP DAILY [facility] Last Admin: 12/15/17 10:52 Dose: 20 mg Heparin Sodium (Porcine) (Heparin) 5,000 units SC Q12 [facility] Last Admin: 12/15/17 10:53 Dose: 5,000 units Hydralazine HCl (Apresoline) 10 mg IVP Q6H PRN PRN Reason: high blood pressure Piperacillin Sod/Tazobactam Sod (Zosyn 2.25 Gm Iv Premix) 2.25 gm in 50 mls @ 200 mls/hr IVPB Q8H [facility] Last Admin: 12/15/17 14:00 Dose: 200 mls/hr Sodium Chloride (Sodium Chloride 0.45%) 1,000 mls @ 100 mls/hr IV .Q10H [facility] Stop: 12/16/17 23:55 Potassium Chloride/Dextrose/Sod Cl (Potassium Chl 20 Meq In D5-1/2ns) 1,000 mls @ 30 mls/hr IV .Q24H [facility] Last Admin: 12/15/17 13:49 Dose: 30 mls/hr Insulin Glargine (Lantus) 10 unit SC HS [facility] Last Admin: 12/14/17 21:39 Dose: Not Given Insulin Human Regular (Novolin R) 0 unit SC [facility] PRN Reason: Protocol Last Admin: 12/15/17 13:05 Dose: 2 unit Medroxyprogesterone Acetate (Provera) 10 mg PO DAILY [facility] Last Admin: 12/15/17 10:54 Dose: 10 mg Megestrol Acetate (Megace) 20 mg PO DAILY [facility] Last Admin: 12/15/17 10:52 Dose: 20 mg Metoprolol Tartrate (Lopressor) 25 mg PO BID [facility] Last Admin: 12/15/17 10:53 Dose: 25 mg Metoprolol Tartrate (Lopressor) 5 mg IVP BID [facility] Last Admin: 12/15/17 11:25 Dose: Not Given Pneumococcal Polyvalent Vaccine (Pneumovax 23 Vaccine) 0.5 ml SC .ONCE ONE Stop: 12/17/17 10:08 Rosuvastatin Calcium (Crestor) 10 mg PO [facility] Last Admin: 12/14/17 21:14 Dose: Not Given Senna/Docusate Sodium (Senokot S 50 Mg-8.6 Mg) 1 tab PO DAILY [facility] Last Admin: 12/15/17 10:55 Dose: 1 tab Trazodone HCl (Desyrel) 25 mg PO [facility] Last Admin: 12/14/17 21:14 Dose: Not Given Vitamin B Complex/Vitamin C (Berocca) 1 tab PO DAILY [facility] Last Admin: 12/15/17 10:53 Dose: 1 tab - Labs Labs: 12/15/17 07:05 12/15/17 07:05 PT 13.8 SECONDS (9.7-12.2) H 12/13/17 20:33 INR 1.2 12/13/17 20:33 APTT 20 SECONDS (21-34) L 12/13/17 20:33
--- NOTE | 2017-12-15 16:06 | CP.PCM.CON ---
History of Present Illness - History of Present Illness History of Present Illness: Palliative consult requested by Dr. Plata medical cash poster, for goals of care discussion Patient is 77 years old -[place] lady admitted from care home with changes in mental status that have more been more severe over the last 3 weeks. On the day of admission patient was found unresponsive by the family member. On admission the chest x-ray was negative acute findings. Patient was found to be dehydrated with BUN of 109 and creatinine of 2.6. Troponin levels elevated. Patient seen by Dr. Martin for renal consult and was found to be in prerenal state when the hemodialysis is not needed. Over the last 2 days patient's condition has improved, she became more alert, able to swallow clear liquids and tolerates well diet. The white blood count elevated on admission, decreased to 17.8 on Zosyn IV antibiotics. Past medical history, hypertension, elevated cholesterol, cholecystectomy, CVAs 3, pressure sore Social history, long-term care home resident, has 2 sons, ,retired Family history, mother from CVA Review of Systems - Review of Systems All systems: reviewed and no additional remarkable complaints except Review of Systems: Review of systems unobtainable from the patient due to her lethargy and weakness. ROS obtained from the son reports increased alertness in his mother, and ability to swallow clear liquids. Past Patient History - Past Medical History & Family History Past Medical History?: Yes - Past Social History Smoking Status: Never Smoked - CARDIAC Hx Hypercholesterolemia: Yes Hx Hypertension: Yes - PULMONARY Hx Respiratory Disorders: No - NEUROLOGICAL Hx Dementia: Yes (son reports care home staff advised him) - HEENT Hx Cataracts: Yes - RENAL Hx Chronic Kidney Disease: No - ENDOCRINE/METABOLIC Hx Diabetes Mellitus Type 2: Yes - HEMATOLOGICAL/ONCOLOGICAL Hx Shingles: Yes - INTEGUMENTARY Hx Dermatological Problems: No - MUSCULOSKELETAL/RHEUMATOLOGICAL Hx Musculoskeletal Disorders: Yes (LEFT SHOULDER PAIN) Hx Falls: Yes - GASTROINTESTINAL Hx Gall Bladder Disease: Yes - GENITOURINARY/GYNECOLOGICAL Hx Incontinence: Yes Hx Urinary Tract Infection: Yes - PSYCHIATRIC Hx Substance Use: No - SURGICAL HISTORY Hx Cholecystectomy: Yes - ANESTHESIA Hx Anesthesia: Yes Hx Anesthesia Reactions: No Hx Malignant Hyperthermia: No Meds Allergies/Adverse Reactions: Allergies Allergy/AdvReac Type Severity Reaction Status Date / Time No Known Allergies Allergy Verified 12/13/17 20:12 - Medications Medications: Current Medications Ascorbic Acid (Vitamin C 500 Mg Tab) 500 mg PO DAILY [facility] Last Admin: 12/15/17 10:53 Dose: 500 mg Aspirin (Ecotrin) 81 mg PO DAILY [facility] Last Admin: 12/15/17 10:57 Dose: 81 mg Famotidine (Pepcid) 20 mg IVP DAILY [facility] Last Admin: 12/15/17 10:52 Dose: 20 mg Heparin Sodium (Porcine) (Heparin) 5,000 units SC Q12 [facility] Last Admin: 12/15/17 10:53 Dose: 5,000 units Hydralazine HCl (Apresoline) 10 mg IVP Q6H PRN PRN Reason: high blood pressure Piperacillin Sod/Tazobactam Sod (Zosyn 2.25 Gm Iv Premix) 2.25 gm in 50 mls @ 200 mls/hr IVPB Q8H [facility] Last Admin: 12/15/17 14:00 Dose: 200 mls/hr Sodium Chloride (Sodium Chloride 0.45%) 1,000 mls @ 100 mls/hr IV .Q10H [facility] Stop: 12/16/17 23:55 Potassium Chloride/Dextrose/Sod Cl (Potassium Chl 20 Meq In D5-1/2ns) 1,000 mls @ 30 mls/hr IV .Q24H [facility] Last Admin: 12/15/17 13:49 Dose: 30 mls/hr Insulin Glargine (Lantus) 10 unit SC HS [facility] Last Admin: 12/14/17 21:39 Dose: Not Given Insulin Human Regular (Novolin R) 0 unit SC ACHS [facility] PRN Reason: Protocol Last Admin: 12/15/17 13:05 Dose: 2 unit Medroxyprogesterone Acetate (Provera) 10 mg PO DAILY [facility] Last Admin: 12/15/17 10:54 Dose: 10 mg Megestrol Acetate (Megace) 20 mg PO DAILY [facility] Last Admin: 12/15/17 10:52 Dose: 20 mg Metoprolol Tartrate (Lopressor) 25 mg PO BID [facility] Last Admin: 12/15/17 10:53 Dose: 25 mg Metoprolol Tartrate (Lopressor) 5 mg IVP BID [facility] Last Admin: 12/15/17 11:25 Dose: Not Given Pneumococcal Polyvalent Vaccine (Pneumovax 23 Vaccine) 0.5 ml SC .ONCE ONE Stop: 12/17/17 10:08 Rosuvastatin Calcium (Crestor) [address] [facility] Last Admin: 12/14/17 21:14 Dose: Not Given Senna/Docusate Sodium (Senokot S 50 Mg-8.6 Mg) 1 tab PO DAILY [facility] Last Admin: 12/15/17 10:55 Dose: 1 tab Trazodone HCl (Desyrel) [address] [facility] Last Admin: 12/14/17 21:14 Dose: Not Given Vitamin B Complex/Vitamin C (Berocca) 1 tab PO DAILY [facility] Last Admin: 12/15/17 10:53 Dose: 1 tab Physical Exam - Constitutional Appears: No Acute Distress, Chronically Ill - Head Exam Head Exam: ATRAUMATIC, NORMAL INSPECTION, NORMOCEPHALIC - Eye Exam Eye Exam: EOMI, Normal appearance, PERRL Pupil Exam: NORMAL ACCOMODATION, PERRL - ENT Exam ENT Exam: Mucous Membranes Moist, Normal Exam - Neck Exam Neck exam: Positive for: Normal Inspection - Respiratory Exam Respiratory Exam: Decreased Breath Sounds, Clear to Auscultation Bilateral, NORMAL BREATHING PATTERN - Cardiovascular Exam Cardiovascular Exam: Tachycardia, REGULAR RHYTHM - GI/Abdominal Exam GI & Abdominal Exam: Normal Bowel Sounds, Soft Additional comments: Incontinent of bowel - Rectal Exam Rectal Exam: Deferred - Exam Additional comments: Gonsalez catheter - Extremities Exam Extremities exam: Positive for: normal inspection, pedal edema Additional comments: Limited range of motions, needs maximum assistance to reposition in bed - Back Exam Back exam: NORMAL INSPECTION Additional comments: Sacral pressure sore - Neurological Exam Neurological exam: Alert, Altered - Psychiatric Exam Psychiatric exam: Normal Affect, Normal Mood - Skin Skin Exam: Normal Color, Warm Additional comments: Sacral pressure sore Results - Vital Signs Recent Vital Signs: Last Vital Signs Temp 98.3 F 12/15/17 07:40 Pulse 92 H 12/15/17 11:00 Resp 18 12/15/17 11:00 BP 136/72 12/15/17 11:00 Pulse Ox 100 12/15/17 11:00 - Labs Result Diagrams: 12/15/17 07:05 12/15/17 07:05 Labs: Laboratory Results - last 24 hr 12/14/17 12/15/17 12/15/17 21:32 06:44 07:05 WBC 13.1 H RBC 3.18 L Hgb 9.9 L Hct 29.6 L MCV 93.1 MCH 31.3 H MCHC 33.6 RDW 13.9 Plt Count 238 MPV 8.7 Neut % (Auto) 82.1 H Lymph % (Auto) 7.6 L [place] % (Auto) 7.9 Eos % (Auto) 1.8 Baso % (Auto) 0.6 Neut # (Auto) 10.7 H Lymph # (Auto) 1.0 [place] # (Auto) 1.0 H Eos # (Auto) 0.2 Baso # (Auto) 0.1 Neutrophils % (Manual) 83 H Lymphocytes % (Manual) 8 L Monocytes % (Manual) 5 Eosinophils % (Manual) 4 Platelet Estimate Normal RBC Morphology Normal Sodium Potassium Chloride Carbon Dioxide Anion Gap BUN Creatinine Est GFR ( Amer) Est GFR (Non-Af Amer) POC Glucose (mg/dL) 176 H 156 H Random Glucose Calcium Total Bilirubin AST ALT Alkaline Phosphatase Total Protein Albumin Globulin Albumin/Globulin Ratio Urine Color Urine Clarity Urine pH Ur Specific [place] Urine Protein Urine Glucose (UA) Urine Ketones Urine Blood Urine Nitrate Urine Bilirubin Urine Urobilinogen Ur Leukocyte Esterase Urine WBC (Auto) Urine RBC (Auto) Urine WBC Clumps (Auto) Ur Squamous Epith Cells Urine Bacteria Hyaline Casts Urine Yeast (Budding) 12/15/17 12/15/17 12/15/17 07:05 07:06 11:12 WBC RBC Hgb Hct MCV MCH MCHC RDW Plt Count MPV Neut % (Auto) Lymph % (Auto) [place] % (Auto) Eos % (Auto) Baso % (Auto) Neut # (Auto) Lymph # (Auto) [place] # (Auto) Eos # (Auto) Baso # (Auto) Neutrophils % (Manual) Lymphocytes % (Manual) Monocytes % (Manual) Eosinophils % (Manual) Platelet Estimate RBC Morphology Sodium 154 H Potassium 3.5 L Chloride 120 H Carbon Dioxide 22 Anion Gap 15 BUN 67 H Creatinine 1.2 Est GFR ( Amer) 53 Est GFR (Non-Af Amer) 43 POC Glucose (mg/dL) 198 H Random Glucose 142 H Calcium 8.5 L Total Bilirubin 0.7 AST 63 H D ALT 38 Alkaline Phosphatase 117 Total Protein 6.6 Albumin 2.8 L Globulin 3.7 Albumin/Globulin Ratio 0.8 L Urine Color Yellow Urine Clarity Hazy Urine pH 5.0 Ur Specific [place] 1.013 Urine Protein Negative Urine Glucose (UA) Normal Urine Ketones Negative Urine Blood Negative Urine Nitrate Negative Urine Bilirubin Negative Urine Urobilinogen Normal Ur Leukocyte Esterase 3+ H Urine WBC (Auto) 48 H Urine RBC (Auto) 8 H Urine WBC Clumps (Auto) Few H Ur Squamous Epith Cells 9 H Urine Bacteria Rare Hyaline Casts 0-2 Urine Yeast (Budding) Occ H Assessment & Plan - Assessment and Plan (Free Text) Assessment: Palliative consult Code status full called before the consult, there was not advanced directive, PPS 10%'s I reviewed medical records, all diagnostic studies, examined patient in the bed , and discussed goals of care with patient's son David at the bedside. Patient is alert, looking tired, able to answer simple questions, and follow simple commands. At the Bedside This Is the First Time for a Long Time,. Patient Being Able to Recognize him and talk to Him. Patient told the son she was feeling called and asked for the blanket. When I was there patient was able to verbalize her feelings of not being comfortable in the bed. Breath sounds diminished, no cough noted. Pulse oximetry 93% on room air. Patient is tachycardic, HR 96. Abdomen soft, active bowel sounds, incontinent of bowel and bladder. Gonsalez catheter at bedside, urine clear, with good amount. There is sacral pressure sore, with dressing on. Limited range of motion to upper and lower extremities. Patient needs max assistance to be a position in bed. Patient needs max assistance with feedings. Seen by speech therapist. Purred diet suggested. Blood shoulder 367, patient on insulin sliding scale and Levemir. Patient seen by Dr. Hutton for ill elevated troponin. Goals of care discussed with patient's son David. She is fully however patient 's condition and has seen her gradual decline since of the first CVA. David was very clear that he would like all auxiliary measures to be in place to support his mother's life. If patient's condition becomes terminal and not meaningful recovery was expected that I would allow her natural . I introduced him to by mouth LSD. She chose DNR DNI. This was discussed to nursing. Impression * Improving altered mental status but still unable to fully participate in ADLs * Improving dehydration * Generalized weakness * Sacral pressure sore * Hyperglycemia * POLST signed Suggestions * Reoriented patient 3 on each encounter * IV fluids for hydration, assist with feedings and offer by mouth liquids as tolerated * Assist with repositioning in bed, assist with feedings * Use wedge to offload the sacral area,reposition every 2 hours, maintain Gonsalez in to prevent skin integrity * Monitor blood sugar, with insulin coverage * DNR DNI Thank you for the palliative consult. Patient will be closely monitored by you. Advanced planning time 50 minutes
[2017-12-15] MEDS: traZODone 25 mg Tab PO SCH (22:02)
[2017-12-15] MEDS: (Lantus) Insulin Glargine, Recombinant SC SCH (22:54)
[2017-12-16] MEDS: Piperacill/Tazo 2.25gm in Dex 2.25 GM/50 ML BAG IVPB SCH ×3 (05:44→22:00)
[2017-12-16] MEDS: (Novolin R) Insulin Human Regular 100 units/ml vial SC SCH ×4 (08:15→21:55)
[2017-12-16 08:38] LABS: ALB/GLOB RATIO 0.8 (1.0-2.1); CALCIUM 8.9 mg/dl (8.6-10.4)
[2017-12-16 08:51] LABS: BASO # 0.1 K/uL (0.0-0.2); BASO % 0.5 % (0.0-2.0); EOS # 0.2 K/uL (0.0-0.7); EOS % 2.1 % (0.0-4.0); HEMOGLOBIN 10.1 g/dL (11.0-16.0); LYMPH # 1.1 K/uL (1.0-4.3); LYMPH % 9.8 % (20.0-40.0); MEAN CELL VOLUME 93.1 fL (81.0-99.0); MEAN CORPUSCULAR HEMOGLOBIN 30.8 pg (27.0-31.0); MEAN CORPUSCULAR HGB CONC 33.1 g/dL (33.0-37.0); MEAN PLATELET VOLUME 8.6 fL (7.2-11.7); MONO % 8.7 % (0.0-10.0); NEUT # 8.8 K/uL (1.8-7.0); NEUT % 78.9 % (50.0-75.0); PLATELET COUNT 267 K/uL (130-400); RBC 3.26 Mil/uL (3.80-5.20); RED CELL DISTRIBUTION WIDTH 13.8 % (11.5-14.5); WHITE BLOOD COUNT 11.1 K/uL (4.8-10.8)
[2017-12-16 09:59] LABS: LYMPHOCYTE 9 % (20-40); MONOCYTE 6 % (0-10); NEUTROPHIL 81 % (50-75); TOTAL CELLS COUNTED 100
[2017-12-16 10:00] LABS: EOSINOPHIL 4 % (0-4); PLATELET ESTIMATE NORMAL (NORMAL)
[2017-12-16] MEDS: Docusate-Senna 50 mg-8.6 mg Tab PO SCH (10:50)
[2017-12-16] MEDS: Megestrol Acetate 40 mg/ml Cup PO SCH (10:50)
[2017-12-16] MEDS: Vitamin B Complex/Vitamin C Tab PO SCH (10:50)
[2017-12-16] MEDS: Metoprolol 1 mg/ml Inj IVP SCH ×2 (12:59→18:30)
[2017-12-16] MEDS: Potassium Ch 20mEq in D5-1/2NS 1,000 ML IV SCH (14:00)
--- NOTE | 2017-12-16 17:58 | CP.PCM.PN ---
Subjective - Date & Time of Evaluation Date of Evaluation: 12/16/17 Time of Evaluation: 17:58 - Subjective Subjective: Nephrology Consultation: Assessment: Stable Acute Kidney Injury (N17.9) likely due to dehydration/pre-renal state as also evident by Hypernatremia Anemia HTN Hyperglycemia/DM, AMS b/l renal cysts Plan No acute need for renal replacement therapy at this time. Hypertension control with meds as ordered. hold ACEI/ARB due to YIN Monitor Input/Output, daily weights and renal function with basic metabolic panel continue with 0.45% saline @ 100 ml/hr supplement electrolytes as needed free water supplementation if she is able to take PO Dose meds/antibiotics for improved GFR. Avoid fleets enema/magnesium based laxatives. Avoid nephrotoxins/NSAIDs/ iodinated contrast (unless needed emergently) Glycemic control Further work up/management as per primary team Palliative care involved Thanks for allowing me to participate in care of your patient. Will follow patient with you. Please call if any Qs. Dr Milo Martin Office: [phone] Chief Complaint; unable reason for consult: YIN HPI: Pt is a 77 F with hx of hypertension (years), dementia, pressure ulcers presented with complaints of AMS and renal consulted for YIN. pt was noted to have dehydration no known OTC/herbal meds or NSAIDs No known recent iodinated contrast exposure. No obvious episodes of low BP. ROS: pt unable to provide any ROS Physical Examination: family bedside General Appearance: Comfortable, in no acute respiratory distress, Vitals reviewed and noted as below Head; Atraumatic, normocephalic ENT: unable EYES: unable Neck; supple no lymphadenopathy, no thyromegaly or bruit Lungs: Normal respiratory rate/effort. Breath sounds bilateral equal and clear Heart: Normal rate. s1s2 normal. No rub or gallop. Extremities: no edema. No varicose veins Neurological: Patient is awake. has contractures in extremities. hx of dementia Skin: Warm and dry. Normal turgor. No rash. Palpitation: Normal elasticity for age Abdomen: Abdomen is soft. Bowel sounds +. There is no abdominal tenderness, no guarding/rigidity no organomegaly Psych: unable MSK: no joint tenderness or swelling. : kidney or bladder not palpable. has recinos Labs/imaging reviewed. Past medical history, past surgical history, family history, social history, allergy reviewed and noted as below Family hx: no hx of CKD. Rest non-contributory Objective - Vital Signs/Intake and Output Vital Signs (last 24 hours): Temp Pulse Resp BP Pulse Ox 98.1 F 81 18 120/69 100 12/16/17 07:35 12/16/17 07:35 12/16/17 07:35 12/16/17 10:50 12/16/17 07:35 Intake and Output: 12/16/17 12/16/17 06:59 18:59 Intake Total 240 Output Total 400 Balance -160 - Medications Medications: Current Medications Ascorbic Acid (Vitamin C 500 Mg Tab) 500 mg PO DAILY [facility] Last Admin: 12/16/17 10:50 Dose: 500 mg Aspirin (Ecotrin) 81 mg PO DAILY [facility] Last Admin: 12/16/17 10:50 Dose: 81 mg Famotidine (Pepcid) 20 mg IVP DAILY [facility] Last Admin: 12/16/17 10:50 Dose: 20 mg Heparin Sodium (Porcine) (Heparin) 5,000 units SC Q12 [facility] Last Admin: 12/16/17 10:50 Dose: 5,000 units Hydralazine HCl (Apresoline) 10 mg IVP Q6H PRN PRN Reason: high blood pressure Piperacillin Sod/Tazobactam Sod (Zosyn 2.25 Gm Iv Premix) 2.25 gm in 50 mls @ 200 mls/hr IVPB Q8H [facility] Last Admin: 12/16/17 14:45 Dose: 200 mls/hr Sodium Chloride (Sodium Chloride 0.45%) 1,000 mls @ 100 mls/hr IV .Q10H [facility] Stop: 12/16/17 23:55 Potassium Chloride/Dextrose/Sod Cl (Potassium Chl 20 Meq In D5-1/2ns) 1,000 mls @ 30 mls/hr IV .Q24H [facility] Last Admin: 12/16/17 14:00 Dose: Not Given Insulin Glargine (Lantus) 10 unit SC HS [facility] Last Admin: 12/15/17 22:54 Dose: 10 u Insulin Human Regular (Novolin R) 0 unit SC ACHS [facility] PRN Reason: Protocol Last Admin: 12/16/17 12:25 Dose: 4 unit Medroxyprogesterone Acetate (Provera) 10 mg PO DAILY [facility] Megestrol Acetate (Megace) 20 mg PO DAILY [facility] Last Admin: 12/16/17 10:50 Dose: 20 mg Metoprolol Tartrate (Lopressor) 25 mg PO BID [facility] Last Admin: 12/16/17 10:50 Dose: 25 mg Metoprolol Tartrate (Lopressor) 5 mg IVP BID [facility] Last Admin: 12/16/17 12:59 Dose: Not Given Pneumococcal Polyvalent Vaccine (Pneumovax 23 Vaccine) 0.5 ml SC .ONCE ONE Stop: 12/17/17 10:08 Rosuvastatin Calcium (Crestor) 10 mg PO [facility] Last Admin: 12/15/17 22:02 Dose: 10 mg Senna/Docusate Sodium (Senokot S 50 Mg-8.6 Mg) 1 tab PO DAILY [facility] Last Admin: 12/16/17 10:50 Dose: 1 tab Trazodone HCl (Desyrel) 25 mg PO [facility] Last Admin: 12/15/17 22:02 Dose: 25 mg Vitamin B Complex/Vitamin C (Berocca) 1 tab PO DAILY [facility] Last Admin: 12/16/17 10:50 Dose: 1 tab - Labs Labs: 12/16/17 08:13 12/16/17 08:13 PT 13.8 SECONDS (9.7-12.2) H 12/13/17 20:33 INR 1.2 12/13/17 20:33 APTT 20 SECONDS (21-34) L 12/13/17 20:33
[2017-12-16] MEDS: traZODone 25 mg Tab PO SCH (22:00)
[2017-12-16] MEDS: (Lantus) Insulin Glargine, Recombinant SC SCH (23:00)
[2017-12-17] MEDS: Piperacill/Tazo 2.25gm in Dex 2.25 GM/50 ML BAG IVPB SCH ×3 (06:57→22:45)
[2017-12-17] MEDS: (Novolin R) Insulin Human Regular 100 units/ml vial SC SCH ×4 (07:54→22:09)
--- NOTE | 2017-12-17 08:11 | CP.PCM.PN ---
Subjective - Date & Time of Evaluation Date of Evaluation: 12/15/17 Time of Evaluation: 12:05 - Subjective Subjective: Patient seen and evaluated Not in distress Arousable Mediacl mgt for CAD Non STEMI and YIN Patient DNR/DNI Objective - Vital Signs/Intake and Output Vital Signs (last 24 hours): Temp Pulse Resp BP Pulse Ox 98.4 F 67 18 128/65 97 12/17/17 00:41 12/17/17 00:41 12/17/17 00:41 12/17/17 00:41 12/17/17 00:41 Intake and Output: 12/17/17 12/17/17 06:59 18:59 Output Total 800 Balance -800 - Medications Medications: Current Medications Ascorbic Acid (Vitamin C 500 Mg Tab) 500 mg PO DAILY [facility] Last Admin: 12/16/17 10:50 Dose: 500 mg Aspirin (Ecotrin) 81 mg PO DAILY [facility] Last Admin: 12/16/17 10:50 Dose: 81 mg Famotidine (Pepcid) 20 mg IVP DAILY [facility] Last Admin: 12/16/17 10:50 Dose: 20 mg Hydralazine HCl (Apresoline) 10 mg IVP Q6H PRN PRN Reason: high blood pressure Piperacillin Sod/Tazobactam Sod (Zosyn 2.25 Gm Iv Premix) 2.25 gm in 50 mls @ 200 mls/hr IVPB Q8H [facility] Last Admin: 12/17/17 06:57 Dose: 200 mls/hr Potassium Chloride/Dextrose/Sod Cl (Potassium Chl 20 Meq In D5-1/2ns) 1,000 mls @ 30 mls/hr IV .Q24H [facility] Last Admin: 12/16/17 14:00 Dose: Not Given Insulin Glargine (Lantus) 10 unit SC HS [facility] Last Admin: 12/16/17 23:00 Dose: 10 u Insulin Human Regular (Novolin R) 0 unit SC ACHS [facility] PRN Reason: Protocol Last Admin: 12/17/17 07:54 Dose: Not Given Medroxyprogesterone Acetate (Provera) 10 mg PO DAILY [facility] Megestrol Acetate (Megace) 20 mg PO DAILY [facility] Last Admin: 12/16/17 10:50 Dose: 20 mg Metoprolol Tartrate (Lopressor) 25 mg PO BID [facility] Last Admin: 12/16/17 17:45 Dose: Not Given Metoprolol Tartrate (Lopressor) 5 mg IVP BID [facility] Last Admin: 12/16/17 18:30 Dose: Not Given Pneumococcal Polyvalent Vaccine (Pneumovax 23 Vaccine) 0.5 ml SC .ONCE ONE Stop: 12/17/17 10:08 Rosuvastatin Calcium (Crestor) 10 mg PO HS [facility] Last Admin: 12/16/17 22:00 Dose: Not Given Senna/Docusate Sodium (Senokot S 50 Mg-8.6 Mg) 1 tab PO DAILY [facility] Last Admin: 12/16/17 10:50 Dose: 1 tab Trazodone HCl (Desyrel) 25 mg PO HS [facility] Last Admin: 12/16/17 22:00 Dose: Not Given Vitamin B Complex/Vitamin C (Berocca) 1 tab PO DAILY [facility] Last Admin: 12/16/17 10:50 Dose: 1 tab - Labs Labs: 12/16/17 08:13 12/16/17 08:13 PT 13.8 SECONDS (9.7-12.2) H 12/13/17 20:33 INR 1.2 12/13/17 20:33 APTT 20 SECONDS (21-34) L 12/13/17 20:33
--- NOTE | 2017-12-17 08:11 | CP.PCM.PN ---
Subjective - Date & Time of Evaluation Date of Evaluation: 12/16/17 Time of Evaluation: 13:10 - Subjective Subjective: Patient seen and evaluated Not in distress Arousable Medical mgt for CAD Non STEMI and YIN Patient DNR/DNI Objective - Vital Signs/Intake and Output Vital Signs (last 24 hours): Temp Pulse Resp BP Pulse Ox 98.4 F 67 18 128/65 97 12/17/17 00:41 12/17/17 00:41 12/17/17 00:41 12/17/17 00:41 12/17/17 00:41 Intake and Output: 12/17/17 12/17/17 06:59 18:59 Output Total 800 Balance -800 - Medications Medications: Current Medications Ascorbic Acid (Vitamin C 500 Mg Tab) 500 mg PO DAILY [facility] Last Admin: 12/16/17 10:50 Dose: 500 mg Aspirin (Ecotrin) 81 mg PO DAILY [facility] Last Admin: 12/16/17 10:50 Dose: 81 mg Famotidine (Pepcid) 20 mg IVP DAILY [facility] Last Admin: 12/16/17 10:50 Dose: 20 mg Hydralazine HCl (Apresoline) 10 mg IVP Q6H PRN PRN Reason: high blood pressure Piperacillin Sod/Tazobactam Sod (Zosyn 2.25 Gm Iv Premix) 2.25 gm in 50 mls @ 200 mls/hr IVPB Q8H [facility] Last Admin: 12/17/17 06:57 Dose: 200 mls/hr Potassium Chloride/Dextrose/Sod Cl (Potassium Chl 20 Meq In D5-1/2ns) 1,000 mls @ 30 mls/hr IV .Q24H [facility] Last Admin: 12/16/17 14:00 Dose: Not Given Insulin Glargine (Lantus) 10 unit SC HS [facility] Last Admin: 12/16/17 23:00 Dose: 10 u Insulin Human Regular (Novolin R) 0 unit SC ACHS [facility] PRN Reason: Protocol Last Admin: 12/17/17 07:54 Dose: Not Given Medroxyprogesterone Acetate (Provera) 10 mg PO DAILY [facility] Megestrol Acetate (Megace) 20 mg PO DAILY [facility] Last Admin: 12/16/17 10:50 Dose: 20 mg Metoprolol Tartrate (Lopressor) 25 mg PO BID [facility] Last Admin: 12/16/17 17:45 Dose: Not Given Metoprolol Tartrate (Lopressor) 5 mg IVP BID [facility] Last Admin: 12/16/17 18:30 Dose: Not Given Pneumococcal Polyvalent Vaccine (Pneumovax 23 Vaccine) 0.5 ml SC .ONCE ONE Stop: 12/17/17 10:08 Rosuvastatin Calcium (Crestor) 10 mg PO HS [facility] Last Admin: 12/16/17 22:00 Dose: Not Given Senna/Docusate Sodium (Senokot S 50 Mg-8.6 Mg) 1 tab PO DAILY [facility] Last Admin: 12/16/17 10:50 Dose: 1 tab Trazodone HCl (Desyrel) 25 mg PO [facility] Last Admin: 12/16/17 22:00 Dose: Not Given Vitamin B Complex/Vitamin C (Berocca) 1 tab PO DAILY [facility] Last Admin: 12/16/17 10:50 Dose: 1 tab - Labs Labs: 12/16/17 08:13 12/16/17 08:13 PT 13.8 SECONDS (9.7-12.2) H 12/13/17 20:33 INR 1.2 12/13/17 20:33 APTT 20 SECONDS (21-34) L 12/13/17 20:33
[2017-12-17 08:35] LABS: BASO # 0.1 K/uL (0.0-0.2); BASO % 0.6 % (0.0-2.0); EOS # 0.3 K/uL (0.0-0.7); EOS % 2.5 % (0.0-4.0); HEMOGLOBIN 10.3 g/dL (11.0-16.0); LYMPH # 0.8 K/uL (1.0-4.3); LYMPH % 7.5 % (20.0-40.0); MEAN CELL VOLUME 92.7 fL (81.0-99.0); MEAN CORPUSCULAR HEMOGLOBIN 31.2 pg (27.0-31.0); MEAN CORPUSCULAR HGB CONC 33.6 g/dL (33.0-37.0); MEAN PLATELET VOLUME 8.3 fL (7.2-11.7); MONO # 0.8 K/uL (0.0-0.8); MONO % 7.1 % (0.0-10.0); NEUT # 9.2 K/uL (1.8-7.0); NEUT % 82.3 % (50.0-75.0); PLATELET COUNT 266 K/uL (130-400); RED CELL DISTRIBUTION WIDTH 13.6 % (11.5-14.5); WHITE BLOOD COUNT 11.2 K/uL (4.8-10.8)
[2017-12-17 09:17] LABS: ALB/GLOB RATIO 0.8 (1.0-2.1); ALBUMIN 2.9 g/dL (3.5-5.0); ALT/SGPT 35 U/L (9-52); AST/SGOT 33 U/L (14-36); BLOOD UREA NITROGEN 30 mg/dL (7-17); CALCIUM 8.5 mg/dl (8.6-10.4); GFR AFRICAN-AMERICAN > 60; GFR NON-AFRICAN AMERICAN > 60
[2017-12-17 09:34] LABS: EOSINOPHIL 2 % (0-4); LYMPHOCYTE 8 % (20-40); MONOCYTE 7 % (0-10); NEUTROPHIL 83 % (50-75); TOTAL CELLS COUNTED 100
[2017-12-17 09:35] LABS: PLATELET ESTIMATE NORMAL (NORMAL)
[2017-12-17 09:49] VITALS: RESP 20
[2017-12-17] MEDS ORDERED: Pneumococcal 23-Valent Vaccine SC ONE (10:07)
[2017-12-17] MEDS: Metoprolol 1 mg/ml Inj IVP SCH ×2 (10:28→18:00)
[2017-12-17] MEDS: Vitamin B Complex/Vitamin C Tab PO SCH (10:31)
[2017-12-17] MEDS: Megestrol Acetate 40 mg/ml Cup PO SCH (10:32)
[2017-12-17] MEDS: Docusate-Senna 50 mg-8.6 mg Tab PO SCH (10:32)
--- NOTE | 2017-12-17 11:27 | CP.PCM.PN ---
Subjective - Date & Time of Evaluation Date of Evaluation: 12/17/17 Time of Evaluation: 11:26 - Subjective Subjective: Follow up Nephrology Consultation: Assessment: Stable Acute Kidney Injury (N17.9) likely due to dehydration/pre-renal state as also evident by Hypernatremia Anemia HTN Hyperglycemia/DM, AMS b/l renal cysts Plan No acute need for renal replacement therapy at this time. Hypertension control with meds as ordered. hold ACEI/ARB due to YIN Monitor Input/Output, daily weights and renal function with basic metabolic panel start D5W @ 75 ml/hr supplement electrolytes as needed free water supplementation if she is able to take PO Dose meds/antibiotics for improved GFR. Avoid nephrotoxins/NSAIDs Glycemic control Further work up/management as per primary team Palliative care involved Thanks for allowing me to participate in care of your patient. Will follow patient with you. Please call if any Qs. Dr Milo Martin Office: [phone] Chief Complaint; unable reason for consult: YIN HPI: Pt is a 77 F with hx of hypertension (years), dementia, pressure ulcers presented with complaints of AMS and renal consulted for YIN. pt was noted to have dehydration no known OTC/herbal meds or NSAIDs No known recent iodinated contrast exposure. No obvious episodes of low BP. ROS: pt unable to provide any ROS Physical Examination: General Appearance: Comfortable, in no acute respiratory distress, Vitals reviewed and noted as below Head; Atraumatic, normocephalic ENT: unable EYES: unable Neck; supple no lymphadenopathy, no thyromegaly or bruit Lungs: Normal respiratory rate/effort. Breath sounds bilateral equal and clear Heart: Normal rate. s1s2 normal. No rub or gallop. Extremities: no edema. No varicose veins Neurological: Patient is awake. has contractures in extremities. hx of dementia Skin: Warm and dry. Normal turgor. No rash. Palpitation: Normal elasticity for age Abdomen: Abdomen is soft. Bowel sounds +. There is no abdominal tenderness, no guarding/rigidity no organomegaly Psych: unable MSK: no joint tenderness or swelling. : kidney or bladder not palpable. has recinos Labs/imaging reviewed. Past medical history, past surgical history, family history, social history, allergy reviewed and noted as below Family hx: no hx of CKD. Rest non-contributory Objective - Vital Signs/Intake and Output Vital Signs (last 24 hours): Temp Pulse Resp BP Pulse Ox 98.0 F 80 20 148/77 100 12/17/17 09:45 12/17/17 09:45 12/17/17 09:45 12/17/17 10:31 12/17/17 09:45 Intake and Output: 12/17/17 12/17/17 06:59 18:59 Output Total 800 Balance -800 - Medications Medications: Current Medications Ascorbic Acid (Vitamin C 500 Mg Tab) 500 mg PO DAILY [facility] Last Admin: 12/17/17 10:32 Dose: Not Given Aspirin (Ecotrin) 81 mg PO DAILY [facility] Last Admin: 12/17/17 10:31 Dose: Not Given Famotidine (Pepcid) 20 mg IVP DAILY [facility] Last Admin: 12/16/17 10:50 Dose: 20 mg Hydralazine HCl (Apresoline) 10 mg IVP Q6H PRN PRN Reason: high blood pressure Piperacillin Sod/Tazobactam Sod (Zosyn 2.25 Gm Iv Premix) 2.25 gm in 50 mls @ 200 mls/hr IVPB Q8H [facility] Last Admin: 12/17/17 06:57 Dose: 200 mls/hr Potassium Chloride/Dextrose/Sod Cl (Potassium Chl 20 Meq In D5-1/2ns) 1,000 mls @ 30 mls/hr IV .Q24H [facility] Last Admin: 12/16/17 14:00 Dose: Not Given Dextrose (Dextrose 5% In Water 1000 Ml) 1,000 mls @ 75 mls/hr IV .[id number] [facility] Last Admin: 12/17/17 10:28 Dose: 75 mls/hr Insulin Glargine (Lantus) 10 unit SC HS [facility] Last Admin: 12/16/17 23:00 Dose: 10 u Insulin Human Regular (Novolin R) 0 unit SC ACHS [facility] PRN Reason: Protocol Last Admin: 12/17/17 07:54 Dose: Not Given Medroxyprogesterone Acetate (Provera) 10 mg PO DAILY [facility] Last Admin: 12/17/17 10:32 Dose: Not Given Megestrol Acetate (Megace) 20 mg PO DAILY [facility] Last Admin: 12/17/17 10:32 Dose: Not Given Metoprolol Tartrate (Lopressor) 25 mg PO BID [facility] Last Admin: 12/17/17 10:31 Dose: Not Given Metoprolol Tartrate (Lopressor) 5 mg IVP BID [facility] Last Admin: 12/17/17 10:28 Dose: 5 mg Rosuvastatin Calcium (Crestor) 10 mg PO HS [facility] Last Admin: 12/16/17 22:00 Dose: Not Given Senna/Docusate Sodium (Senokot S 50 Mg-8.6 Mg) 1 tab PO DAILY [facility] Last Admin: 12/17/17 10:32 Dose: Not Given Trazodone HCl (Desyrel) 25 mg PO HS [facility] Last Admin: 12/16/17 22:00 Dose: Not Given Vitamin B Complex/Vitamin C (Berocca) 1 tab PO DAILY [facility] Last Admin: 12/17/17 10:31 Dose: Not Given - Labs Labs: 12/17/17 08:24 12/17/17 08:24 PT 13.8 SECONDS (9.7-12.2) H 12/13/17 20:33 INR 1.2 12/13/17 20:33 APTT 20 SECONDS (21-34) L 12/13/17 20:33
[2017-12-17] MEDS: traZODone 25 mg Tab PO SCH (22:45)
[2017-12-17] MEDS: (Lantus) Insulin Glargine, Recombinant SC SCH (22:46)
--- NOTE | 2017-12-17 22:54 | CP.PCM.PN ---
Subjective - Date & Time of Evaluation Date of Evaluation: 12/17/17 Time of Evaluation: 07:30 - Subjective Subjective: Patient seen and evaluated No acute events noted Objective - Vital Signs/Intake and Output Vital Signs (last 24 hours): Temp Pulse Resp BP Pulse Ox 98.3 F 82 20 118/73 100 12/17/17 17:13 12/17/17 17:13 12/17/17 17:13 12/17/17 17:57 12/17/17 09:45 - Medications Medications: Current Medications Ascorbic Acid (Vitamin C 500 Mg Tab) 500 mg PO DAILY [facility] Last Admin: 12/17/17 10:32 Dose: Not Given Aspirin (Ecotrin) 81 mg PO DAILY [facility] Last Admin: 12/17/17 10:31 Dose: Not Given Famotidine (Pepcid) 20 mg IVP DAILY [facility] Last Admin: 12/17/17 11:55 Dose: 20 mg Heparin Sodium (Porcine) (Heparin) 5,000 units SC Q12 [facility] Last Admin: 12/17/17 22:44 Dose: 5,000 units Hydralazine HCl (Apresoline) 10 mg IVP Q6H PRN PRN Reason: high blood pressure Piperacillin Sod/Tazobactam Sod (Zosyn 2.25 Gm Iv Premix) 2.25 gm in 50 mls @ 200 mls/hr IVPB Q8H [facility] Last Admin: 12/17/17 22:45 Dose: 200 mls/hr Dextrose (Dextrose 5% In Water 1000 Ml) 1,000 mls @ 75 mls/hr IV .[id number] [facility] Last Admin: 12/17/17 10:28 Dose: 75 mls/hr Insulin Glargine (Lantus) 10 unit SC HS [facility] Last Admin: 12/17/17 22:46 Dose: 10 units Insulin Human Regular (Novolin R) 0 unit SC ACHS [facility] PRN Reason: Protocol Last Admin: 12/17/17 22:09 Dose: Not Given Medroxyprogesterone Acetate (Provera) 10 mg PO DAILY [facility] Megestrol Acetate (Megace) 20 mg PO DAILY [facility] Last Admin: 12/17/17 10:32 Dose: Not Given Metoprolol Tartrate (Lopressor) 25 mg PO BID [facility] Last Admin: 12/17/17 17:57 Dose: 25 mg Metoprolol Tartrate (Lopressor) 5 mg IVP BID [facility] Last Admin: 12/17/17 18:00 Dose: Not Given Rosuvastatin Calcium (Crestor) 10 mg PO HS [facility] Last Admin: 12/17/17 22:45 Dose: 10 mg Senna/Docusate Sodium (Senokot S 50 Mg-8.6 Mg) 1 tab PO DAILY [facility] Last Admin: 12/17/17 10:32 Dose: Not Given Trazodone HCl (Desyrel) 25 mg PO HS [facility] Last Admin: 12/17/17 22:45 Dose: 25 mg Vitamin B Complex/Vitamin C (Berocca) 1 tab PO DAILY [facility] Last Admin: 12/17/17 10:31 Dose: Not Given - Labs Labs: 12/17/17 08:24 12/17/17 08:24 PT 13.8 SECONDS (9.7-12.2) H 12/13/17 20:33 INR 1.2 12/13/17 20:33 APTT 20 SECONDS (21-34) L 12/13/17 20:33
[2017-12-18] MEDS: Piperacill/Tazo 2.25gm in Dex 2.25 GM/50 ML BAG IVPB SCH (05:37)
[2017-12-18 08:12] LABS: BASO # 0.1 K/uL (0.0-0.2); BASO % 0.4 % (0.0-2.0); EOS # 0.3 K/uL (0.0-0.7); EOS % 2.2 % (0.0-4.0); HEMOGLOBIN 10.8 g/dL (11.0-16.0); LYMPH # 0.9 K/uL (1.0-4.3); LYMPH % 6.2 % (20.0-40.0); MEAN CELL VOLUME 92.8 fL (81.0-99.0); MEAN CORPUSCULAR HEMOGLOBIN 31.4 pg (27.0-31.0); MEAN CORPUSCULAR HGB CONC 33.8 g/dL (33.0-37.0); MEAN PLATELET VOLUME 8.4 fL (7.2-11.7); MONO % 7.1 % (0.0-10.0); NEUT # 11.6 K/uL (1.8-7.0); NEUT % 84.1 % (50.0-75.0); PLATELET COUNT 284 K/uL (130-400); RBC 3.46 Mil/uL (3.80-5.20); RED CELL DISTRIBUTION WIDTH 13.6 % (11.5-14.5); WHITE BLOOD COUNT 13.8 K/uL (4.8-10.8)
[2017-12-18] MEDS: (Novolin R) Insulin Human Regular 100 units/ml vial SC SCH ×4 (08:15→22:22)
[2017-12-18 08:19] LABS: ALB/GLOB RATIO 0.8 (1.0-2.1); ALBUMIN 2.9 g/dL (3.5-5.0); ALT/SGPT 28 U/L (9-52); AST/SGOT 34 U/L (14-36); BLOOD UREA NITROGEN 21 mg/dL (7-17); GFR AFRICAN-AMERICAN > 60; GFR NON-AFRICAN AMERICAN > 60
--- NOTE | 2017-12-18 09:11 | CP.PCM.PN ---
Subjective - Date & Time of Evaluation Date of Evaluation: 12/18/17 Time of Evaluation: 07:05 - Subjective Subjective: PGY2 Medicine note for Dr. Ruth; all management as per Dr. Ruth Patient seen and examined at bedside. Patient resting comfortably. Will turn and shift her gaze when spoken to, but fails to speak or interact. Recently, the son met with Peggy and decided on conservative measures - only IV tx for infections and no aggressive treatments. Patient is DNR/DNI. Further ROS could not be obtained. Objective - Vital Signs/Intake and Output Vital Signs (last 24 hours): Temp Pulse Resp BP Pulse Ox 98.1 F 81 20 123/85 97 12/18/17 07:28 12/18/17 07:28 12/18/17 07:28 12/18/17 07:28 12/18/17 07:28 Intake and Output: 12/18/17 12/18/17 06:59 18:59 Output Total 200 Balance -200 - Medications Medications: Current Medications Ascorbic Acid (Vitamin C 500 Mg Tab) 500 mg PO DAILY [facility] Last Admin: 12/17/17 10:32 Dose: Not Given Aspirin (Ecotrin) 81 mg PO DAILY [facility] Last Admin: 12/17/17 10:31 Dose: Not Given Famotidine (Pepcid) 20 mg IVP DAILY [facility] Last Admin: 12/17/17 11:55 Dose: 20 mg Heparin Sodium (Porcine) (Heparin) 5,000 units SC Q12 [facility] Last Admin: 12/17/17 22:44 Dose: 5,000 units Hydralazine HCl (Apresoline) 10 mg IVP Q6H PRN PRN Reason: high blood pressure Piperacillin Sod/Tazobactam Sod (Zosyn 2.25 Gm Iv Premix) 2.25 gm in 50 mls @ 200 mls/hr IVPB Q8H [facility] Last Admin: 12/18/17 05:37 Dose: 200 mls/hr Dextrose (Dextrose 5% In Water 1000 Ml) 1,000 mls @ 75 mls/hr IV .[id number] [facility] Last Admin: 12/18/17 01:02 Dose: 75 mls/hr Insulin Glargine (Lantus) 10 unit SC HS [facility] Last Admin: 12/17/17 22:46 Dose: 10 units Insulin Human Regular (Novolin R) 0 unit SC ACHS [facility] PRN Reason: Protocol Last Admin: 12/18/17 08:15 Dose: 4 unit Medroxyprogesterone Acetate (Provera) 10 mg PO DAILY [facility] Megestrol Acetate (Megace) 20 mg PO DAILY [facility] Last Admin: 12/17/17 10:32 Dose: Not Given Metoprolol Tartrate (Lopressor) 25 mg PO BID [facility] Last Admin: 12/17/17 17:57 Dose: 25 mg Metoprolol Tartrate (Lopressor) 5 mg IVP BID [facility] Last Admin: 12/17/17 18:00 Dose: Not Given Rosuvastatin Calcium (Crestor) 10 mg PO [facility] Last Admin: 12/17/17 22:45 Dose: 10 mg Senna/Docusate Sodium (Senokot S 50 Mg-8.6 Mg) 1 tab PO DAILY [facility] Last Admin: 12/17/17 10:32 Dose: Not Given Trazodone HCl (Desyrel) 25 mg PO [facility] Last Admin: 12/17/17 22:45 Dose: 25 mg Vitamin B Complex/Vitamin C (Berocca) 1 tab PO DAILY [facility] Last Admin: 12/17/17 10:31 Dose: Not Given - Labs Labs: 12/18/17 07:45 12/18/17 07:45 PT 13.8 SECONDS (9.7-12.2) H 12/13/17 20:33 INR 1.2 12/13/17 20:33 APTT 20 SECONDS (21-34) L 12/13/17 20:33 - Additional Findings Additional findings: - Constitutional Appears: Non-toxic - Head Exam Head Exam: ATRAUMATIC - Eye Exam Eye Exam: EOMI - ENT Exam ENT Exam: Mucous Membranes Moist - Neck Exam Neck Exam: absent: Lymphadenopathy - Respiratory Exam Respiratory Exam: Clear to Ausculation Bilateral - Cardiovascular Exam Cardiovascular Exam: REGULAR RHYTHM - GI/Abdominal Exam GI & Abdominal Exam: Normal Bowel Sounds - Extremities Exam Extremities Exam: absent: Calf Tenderness - Back Exam Back Exam: absent: CVA tenderness (L), CVA tenderness (R) - Neurological Exam Neurological Exam: Alert (lethargic), Awake - Skin Skin Exam: Warm, Dry, Intact Assessment and Plan - Assessment and Plan (Free Text) Assessment: 77yo F admitted for AMS AMS 12/18: f/u echo, official read pending -most likely 2/2 to MODS 2/2 to UTI/wound infection -BUN and [employer] Markedly elevated; troponin elevated; patient is non responsive to commands and only responds to pain -patient has many open sores/wounds; will be cultured; f/u -patient is on abx; Vancomycin and Pip/Tazo; will continue -blood cultures negative to date Pressure Ulcers 12/18: wound culture - ESBL+ e. coli; Consult ID, Dr. Alicia, f/u recs. -f/u wound care recs -c/w abx -reposition every 2 hours Elevated Troponins -most likely 2/2 to MODS -f/u echo -cardiology is on board; Dr. Hutton; thank you for your help Elevated BUN/Creatinine -Dr. Ballard Nephrology; thank you for your help; will f/u recommendations -BUN decreased -will change fluid to 1/2 normal saline given increasing sodium levels; will trend -f/u renal US Hx of HTN -c/w home meds Hx of DM -c/w insulin dosing -keep BS between 140-180 Hx of HLD -hold home meds for now 2/2 to liver dysfunction Hx of Poor appetite -c/w with appetite increasing medication - Megace Hx of dementia like symptoms -son states patient waxes and wanes between making sense and not over the past year or so -recently had UTI in [facility] (2 weeks ago) son states has not been same since -patient unable to render care for self and has multiple wounds from pressure sites Proph -DNR/DNI; conversation with son stated he wants nothing extreme done for mother ; palliative care consult placed; Peggy, f/u recs; family meeting today 10am -Pepcid; will hold protonix in lieu of ARF -Heparin [place]: Poor All management as per Dr. Ruth
--- NOTE | 2017-12-18 09:12 | PN ---
DATE: 12/17/2017 SUBJECTIVE: The patient is improving, IV fluids. Kidney function is slowly improving. Dami Ruth MD
[2017-12-18 10:33] LABS: BASOPHIL 1 % (0-2); EOSINOPHIL 1 % (0-4); LYMPHOCYTE 9 % (20-40); MONOCYTE 7 % (0-10); NEUTROPHIL 82 % (50-75); PLATELET ESTIMATE NORMAL (NORMAL); TOTAL CELLS COUNTED 100
[2017-12-18] MEDS: Metoprolol 1 mg/ml Inj IVP SCH ×2 (10:55→18:29)
[2017-12-18] MEDS: Docusate-Senna 50 mg-8.6 mg Tab PO SCH (10:55)
[2017-12-18] MEDS: Vitamin B Complex/Vitamin C Tab PO SCH (10:55)
[2017-12-18] MEDS: Megestrol Acetate 40 mg/ml Cup PO SCH (10:55)
--- NOTE | 2017-12-18 11:42 | CP.PCM.PN ---
Subjective - Date & Time of Evaluation Date of Evaluation: 12/18/17 Time of Evaluation: 11:41 - Subjective Subjective: Follow up Nephrology Consultation: Assessment: Stable Acute Kidney Injury (N17.9) likely due to dehydration/pre-renal state as also evident by Hypernatremia Anemia HTN Hyperglycemia/DM, AMS b/l renal cysts Plan No acute need for renal replacement therapy at this time. Hypertension control with meds as ordered. can resume ACEI at d/c. continue to hold diuretics Monitor Input/Output, daily weights and renal function with basic metabolic panel continue with D5W @ 75 ml/hr supplement electrolytes as needed free water supplementation if she is able to take PO Dose meds/antibiotics for improved GFR. Avoid nephrotoxins/NSAIDs Glycemic control Further work up/management as per primary team Palliative care involved Thanks for allowing me to participate in care of your patient. Will follow patient with you. Please call if any Qs. Dr Milo Martin Office: [phone] Chief Complaint; unable reason for consult: YIN HPI: Pt is a 77 F with hx of hypertension (years), dementia, pressure ulcers presented with complaints of AMS and renal consulted for YIN. pt was noted to have dehydration no known OTC/herbal meds or NSAIDs No known recent iodinated contrast exposure. No obvious episodes of low BP. ROS: pt unable to provide any ROS Physical Examination: General Appearance: Comfortable, in no acute respiratory distress, Vitals reviewed and noted as below Head; Atraumatic, normocephalic ENT: unable EYES: unable Neck; supple no lymphadenopathy, no thyromegaly or bruit Lungs: Normal respiratory rate/effort. Breath sounds bilateral equal and clear Heart: Normal rate. s1s2 normal. No rub or gallop. Extremities: no edema. No varicose veins Neurological: Patient is awake. has contractures in extremities. hx of dementia Skin: Warm and dry. Normal turgor. No rash. Palpitation: Normal elasticity for age Abdomen: Abdomen is soft. Bowel sounds +. There is no abdominal tenderness, no guarding/rigidity no organomegaly Psych: unable MSK: no joint tenderness or swelling. : kidney or bladder not palpable. has recinos Labs/imaging reviewed. Past medical history, past surgical history, family history, social history, allergy reviewed and noted as below Family hx: no hx of CKD. Rest non-contributory Objective - Vital Signs/Intake and Output Vital Signs (last 24 hours): Temp Pulse Resp BP Pulse Ox 98.1 F 81 20 132/85 97 12/18/17 07:28 12/18/17 07:28 12/18/17 07:28 12/18/17 10:55 12/18/17 07:28 Intake and Output: 12/18/17 12/18/17 06:59 18:59 Output Total 200 Balance -200 - Medications Medications: Current Medications Ascorbic Acid (Vitamin C 500 Mg Tab) 500 mg PO DAILY [facility] Last Admin: 12/18/17 10:55 Dose: 500 mg Aspirin (Ecotrin) 81 mg PO DAILY [facility] Last Admin: 12/18/17 10:55 Dose: 81 mg Famotidine (Pepcid) 20 mg IVP DAILY [facility] Last Admin: 12/18/17 10:55 Dose: 20 mg Heparin Sodium (Porcine) (Heparin) 5,000 units SC Q12 [facility] Last Admin: 12/18/17 10:55 Dose: 5,000 units Hydralazine HCl (Apresoline) 10 mg IVP Q6H PRN PRN Reason: high blood pressure Piperacillin Sod/Tazobactam Sod (Zosyn 2.25 Gm Iv Premix) 2.25 gm in 50 mls @ 200 mls/hr IVPB Q8H [facility] Last Admin: 12/18/17 05:37 Dose: 200 mls/hr Dextrose (Dextrose 5% In Water 1000 Ml) 1,000 mls @ 75 mls/hr IV .[id number] [facility] Last Admin: 12/18/17 01:02 Dose: 75 mls/hr Insulin Glargine (Lantus) 10 unit SC HS [facility] Last Admin: 12/17/17 22:46 Dose: 10 units Insulin Human Regular (Novolin R) 0 unit SC ACHS [facility] PRN Reason: Protocol Last Admin: 12/18/17 08:15 Dose: 4 unit Medroxyprogesterone Acetate (Provera) 10 mg PO DAILY [facility] Last Admin: 12/18/17 10:55 Dose: 10 mg Megestrol Acetate (Megace) 20 mg PO DAILY [facility] Last Admin: 12/18/17 10:55 Dose: 20 mg Metoprolol Tartrate (Lopressor) 25 mg PO BID [facility] Last Admin: 12/18/17 10:55 Dose: 25 mg Metoprolol Tartrate (Lopressor) 5 mg IVP BID [facility] Last Admin: 12/17/17 18:00 Dose: Not Given Rosuvastatin Calcium (Crestor) 10 mg PO HS [facility] Last Admin: 12/17/17 22:45 Dose: 10 mg Senna/Docusate Sodium (Senokot S 50 Mg-8.6 Mg) 1 tab PO DAILY [facility] Last Admin: 12/18/17 10:55 Dose: 1 tab Trazodone HCl (Desyrel) 25 mg PO HS [facility] Last Admin: 12/17/17 22:45 Dose: 25 mg Vitamin B Complex/Vitamin C (Berocca) 1 tab PO DAILY [facility] Last Admin: 12/18/17 10:55 Dose: 1 tab - Labs Labs: 12/18/17 07:45 12/18/17 07:45 PT 13.8 SECONDS (9.7-12.2) H 12/13/17 20:33 INR 1.2 12/13/17 20:33 APTT 20 SECONDS (21-34) L 12/13/17 20:33
[2017-12-18] MEDS: Meropenem 1 GM in Sodium Chloride 0.9% 100 ML IVPB SCH ×2 (13:03→21:33)
[2017-12-18] MEDS ORDERED: Meropenem 500 MG in Sodium Chloride 0.9% 100 ML IVPB SCH (14:00)
--- NOTE | 2017-12-18 14:24 | CP.PCM.CON ---
History of Present Illness - History of Present Illness History of Present Illness: 77 years old -[place] lady admitted from half-way with changes in mental status that have more been more severe over the last 3 weeks. On the day of admission patient was found unresponsive by the family member. On admission the chest x-ray was negative acute findings. Patient was found to be dehydrated with BUN of 109 and creatinine of 2.6. Troponin levels elevated. Patient seen by Dr. Martin for renal consult and was found to be in prerenal state when the hemodialysis is not needed. Over the last 2 days patient's condition has improved, she became more alert, able to swallow clear liquids and tolerates well diet. FOUND TO HAVE ESBL E COLI FROM WOUNDS- SACRAL, HEEL WOUNDS + III Past medical history, hypertension, elevated cholesterol, cholecystectomy, CVAs 3, pressure sore Social history, long-term half-way resident, has 2 sons, ,retired Family history, mother from [facility] Review of Systems - Review of Systems Systems not reviewed;Unavailable: Altered Mental Status All systems: reviewed and no additional remarkable complaints except - Constitutional Constitutional: As Per HPI - EENT Eyes: absent: As Per HPI, Blind Spots, Blurred Vision, Change in Vision, Decreased Night Vision, Diplopia, Discharge, Dry Eye, Exophthalmos, Floaters, Irritation, Itchy Eyes, Loss of Peripheral Vision, Pain, Photophobia, Requires Corrective Lenses, Sees Flashes, Spots in Vision, Tunnel Vision, Other Visual Disturbances, Loss of Vision, Other Ears: absent: As Per HPI, Decreased Hearing, Ear Discharge, Ear Pain, Tinnitus, Abnormal Hearing, Disequilibrium, Dizziness, Other Nose/Mouth/Throat: absent: As Per HPI, Epistaxis, Nasal Congestion, Nasal Discharge, Nasal Obstruction, Nasal Trauma, Nose Pain, Post Nasal Drip, Sinus Pain, Sinus Pressure, Bleeding Gums, Change in Voice, Dental Pain, Dry Mouth, Dysphagia, Halitosis, Hoarsness, Lip Swelling, Mouth Lesions, Mouth Pain, Odynophagia, Sore Throat, Throat Swelling, Tongue Swelling, Facial Pain, Neck Pain, Neck Mass, Other - Breasts Breasts: absent: As Per HPI, Change in Shape, Mass, Pain, Nipple Discharge, Nipple Inversion, Skin Changes, Swelling, Other - Cardiovascular Cardiovascular: absent: As Per HPI, Acrocyanosis, Chest Pain, Chest Pain at Rest , Chest Pain with Activity, Claudication, Diaphoresis, Dyspnea, Dyspnea on Exertion, Edema, Irregular Heart Rhythm, Pain Radiating to Arm/Neck/Jaw, Leg Edema, Leg Ulcers, Lightheadedness, Orthopnea, Palpitations, Paroxysmal Nocturnal Dyspnea, Pedal Edema, Radiating Pain, Rapid Heart Rate, Slow Heart Rate, Syncope, Other - Genitourinary Genitourinary: absent: As Per HPI, Change in Urinary Stream, Difficulty Urinating, Dysuria, Flank Pain, Hematuria, Pyuria, Nocturia, Urinary Incontinence, Urinary Frequency, Urinary Hesitance, Urinary Urgency, Voiding Freq/Small Amts, Freq UTI, Hx Renal/Bladder Calculi, Hx /Renal Surgery, Bladder Distension, Other - Reproductive: Female Reproductive:Female: absent: As Per HPI, Amenorrhea, Amenorrhea/ Control, Currently Menstual, Cycle <21 Days, Cycle >35 Days, Cycle Variable, Menses 1-7 Days, Menses >/= 8 Days, Menses Variable, Cycle > 4 Weeks Between, No Menses for 6 Months, Heavy Menses, Light Menses, Normal Menses, Spotting Between Cycles , S/P Hysterectomy, Menopausal, Post Menopausal, Premenarche, Abnormal Vaginal Bleeding, Dysmenorrhea, Dyspareunia, Genital Lesions, Genital Pruritis, Pelvic Pain, Prolapse Symptoms, Sexual Dysfunction, Vaginal Discharge, Vaginal Dryness , Vaginal Odor, Vaginal Pruritis, Other - Menstruation Menstruation: absent: As Per HPI, Amenorrhea, Amenorrhea/ Control, Currently Menstual, Cycle <21 Days, Cycle >35 Days, Cycle Variable, Menses 1-7 Days, Menses >/= 8 Days, Menses Variable, Cycle > 4 Weeks Between, No Menses for 6 Months, Heavy Menses, Light Menses, Normal Menses, Spotting Between Cycles , S/P Hysterectomy, Menopausal, Post Menopausal, Premenarche, Abnormal Vaginal Bleeding, Dysmenorrhea, Other - Musculoskeletal Musculoskeletal: absent: As Per HPI, Abnormal Gait, Arthralgias, Atrophy, Back Pain, Deformity, Joint Swelling, Limited Range of Motion, Loss of Height, Muscle Cramps, Muscle Weakness, Myalgias, Neck Pain, Numbness, Radiating Pain into Limb, Stiffness, Tingling, Other - Integumentary Integumentary: absent: As Per HPI, Acne, Alopecia, Bleeding Lesions, Change in Hair, Change in Nails, Change in Pigmentation, Changing Lesions, Dry Skin, Erythema, Furuncle, Hirsutism, Lesions, New Lesions, Non-Healing Lesions, Photosensitivity, Pruritus, Rash, Skin Pain, Skin Ulcer, Sores, Striae, Swelling , Unusual Bruising, Wounds, Jaundice, Other - Neurological Neurological: absent: As Per HPI, Abnormal Gait, Abnormal Hearing, Abnormal Movements, Abnormal Speech, Behavioral Changes, Burning Sensations, Confusion, Convulsions, Disequilibrium, Dizziness, Numbness, Focal Weakness, Frequent Falls , Headaches, Lack of Coordination, Loss of Vision, Memory Loss, Paresthesias, Radicular Pain, Restless Legs, Sensory Deficit, Syncope, Tingling, Tremor, Vertigo, Weakness, Other Visual Disturbances, Other - Psychiatric Psychiatric: absent: As Per HPI, Abnormal Sleep Pattern, Anhedonia, Anxiety, Auditory Hallucinations, Behavioral Changes, Change in Appetite, Change in Libido, Confusion, Depression, Difficulty Concentrating, Hallucinations, Homicidal Ideation, Hopelessness, Irritability, Memory Loss, Mood Swings, Panic Attacks, Paranoia, Suicidal Ideation, Visual Hallucinations, Tactile Hallucinations, Other - Endocrine Endocrine: absent: As Per HPI, Change in Body Appearance, Change in Libido, Cold Intolorance, Deepening of Voice, Excessive Sweating, Fatigue, Flushing, Heat Intolorance, Increase in Ring/Shoe/Hat Size, Palpitations, Polydipsia, Polyphagia, Polyuria, Other - Hematologic/Lymphatic Hematologic: absent: As Per HPI, Easy Bleeding, Easy Bruising, Lymphadenopathy, Other Past Patient History - Past Medical History & Family History Past Medical History?: Yes - Past Social History Smoking Status: Never Smoked - CARDIAC Hx Hypercholesterolemia: Yes Hx Hypertension: Yes - PULMONARY Hx Respiratory Disorders: No - NEUROLOGICAL Hx Dementia: Yes (son reports half-way staff advised him) - HEENT Hx Cataracts: Yes - RENAL Hx Chronic Kidney Disease: No - ENDOCRINE/METABOLIC Hx Diabetes Mellitus Type 2: Yes - HEMATOLOGICAL/ONCOLOGICAL Hx Shingles: Yes - INTEGUMENTARY Hx Dermatological Problems: No - MUSCULOSKELETAL/RHEUMATOLOGICAL Hx Musculoskeletal Disorders: Yes (LEFT SHOULDER PAIN) Hx Falls: Yes - GASTROINTESTINAL Hx Gall Bladder Disease: Yes - GENITOURINARY/GYNECOLOGICAL Hx Incontinence: Yes Hx Urinary Tract Infection: Yes - PSYCHIATRIC Hx Substance Use: No - SURGICAL HISTORY Hx Cholecystectomy: Yes - ANESTHESIA Hx Anesthesia: Yes Hx Anesthesia Reactions: No Hx Malignant Hyperthermia: No Meds Allergies/Adverse Reactions: Allergies Allergy/AdvReac Type Severity Reaction Status Date / Time No Known Allergies Allergy Verified 12/13/17 20:12 - Medications Medications: Current Medications Ascorbic Acid (Vitamin C 500 Mg Tab) 500 mg PO DAILY [facility] Last Admin: 12/18/17 10:55 Dose: 500 mg Aspirin (Ecotrin) 81 mg PO DAILY [facility] Last Admin: 12/18/17 10:55 Dose: 81 mg Famotidine (Pepcid) 20 mg IVP DAILY [facility] Last Admin: 12/18/17 10:55 Dose: 20 mg Heparin Sodium (Porcine) (Heparin) 5,000 units SC Q12 [facility] Last Admin: 12/18/17 10:55 Dose: 5,000 units Hydralazine HCl (Apresoline) 10 mg IVP Q6H PRN PRN Reason: high blood pressure Dextrose (Dextrose 5% In Water 1000 Ml) 1,000 mls @ 75 mls/hr IV .[id number] [facility] Last Admin: 12/18/17 01:02 Dose: 75 mls/hr Meropenem 1 gm/ Sodium (Chloride) 100 mls @ 100 mls/hr IVPB Q8H [facility] Last Admin: 12/18/17 13:03 Dose: 100 mls/hr Insulin Glargine (Lantus) 10 unit SC [facility] Last Admin: 12/17/17 22:46 Dose: 10 units Insulin Human Regular (Novolin R) 0 unit SC [facility] PRN Reason: Protocol Last Admin: 12/18/17 12:25 Dose: 6 unit Medroxyprogesterone Acetate (Provera) 10 mg PO DAILY [facility] Last Admin: 12/18/17 10:55 Dose: 10 mg Megestrol Acetate (Megace) 20 mg PO DAILY [facility] Last Admin: 12/18/17 10:55 Dose: 20 mg Metoprolol Tartrate (Lopressor) 25 mg PO BID [facility] Last Admin: 12/18/17 10:55 Dose: 25 mg Metoprolol Tartrate (Lopressor) 5 mg IVP BID [facility] Last Admin: 12/18/17 10:55 Dose: Not Given Rosuvastatin Calcium (Crestor) 10 mg PO [facility] Last Admin: 12/17/17 22:45 Dose: 10 mg Senna/Docusate Sodium (Senokot S 50 Mg-8.6 Mg) 1 tab PO DAILY [facility] Last Admin: 12/18/17 10:55 Dose: 1 tab Trazodone HCl (Desyrel) 25 mg PO HS [facility] Last Admin: 12/17/17 22:45 Dose: 25 mg Vitamin B Complex/Vitamin C (Berocca) 1 tab PO DAILY [facility] Last Admin: 12/18/17 10:55 Dose: 1 tab Physical Exam - Constitutional Appears: Non-toxic, Confused, Cachectic, Chronically Ill - Head Exam Head Exam: NORMOCEPHALIC - Eye Exam Eye Exam: PERRL. absent: Scleral icterus - ENT Exam ENT Exam: Mucous Membranes Dry - Neck Exam Neck exam: Negative for: Lymphadenopathy - Respiratory Exam Respiratory Exam: Decreased Breath Sounds, Rhonchi - Cardiovascular Exam Cardiovascular Exam: REGULAR RHYTHM, +S1, +S2 - GI/Abdominal Exam GI & Abdominal Exam: Diminished Bowel Sounds, Distended. absent: Tenderness - Rectal Exam Rectal Exam: Deferred - Exam Exam: NORMAL INSPECTION - Extremities Exam Extremities exam: Positive for: pedal edema, pedal pulses present. Negative for : calf tenderness, tenderness - Back Exam Back exam: absent: CVA tenderness (L), CVA tenderness (R) - Neurological Exam Neurological exam: Altered, CN II-XII Intact, Motor Sensory Deficit Additional comments: LEFT SIDED WEAK - Psychiatric Exam Psychiatric exam: Depressed - Skin Skin Exam: Intact Results - Vital Signs Recent Vital Signs: Last Vital Signs Temp 98.1 F 12/18/17 07:28 Pulse 81 12/18/17 07:28 Resp 20 12/18/17 07:28 BP 132/85 12/18/17 10:55 Pulse Ox 97 12/18/17 07:28 - Labs Result Diagrams: 12/18/17 07:45 12/18/17 07:45 Labs: Laboratory Results - last 24 hr 12/17/17 12/17/17 12/18/17 16:44 21:45 06:43 WBC RBC Hgb Hct MCV MCH MCHC RDW Plt Count MPV Neut % (Auto) Lymph % (Auto) [place] % (Auto) Eos % (Auto) Baso % (Auto) Neut # (Auto) Lymph # (Auto) [place] # (Auto) Eos # (Auto) Baso # (Auto) Neutrophils % (Manual) Lymphocytes % (Manual) Monocytes % (Manual) Eosinophils % (Manual) Basophils % (Manual) Platelet Estimate RBC Morphology Sodium Potassium Chloride Carbon Dioxide Anion Gap BUN Creatinine Est GFR ( Amer) Est GFR (Non-Af Amer) POC Glucose (mg/dL) 155 H 168 H 208 H Random Glucose Calcium Total Bilirubin AST ALT Alkaline Phosphatase Total Protein Albumin Globulin Albumin/Globulin Ratio 12/18/17 12/18/17 12/18/17 07:45 07:45 11:05 WBC 13.8 H RBC 3.46 L Hgb 10.8 L Hct 32.1 L MCV 92.8 MCH 31.4 H MCHC 33.8 RDW 13.6 Plt Count 284 MPV 8.4 Neut % (Auto) 84.1 H Lymph % (Auto) 6.2 L [place] % (Auto) 7.1 Eos % (Auto) 2.2 Baso % (Auto) 0.4 Neut # (Auto) 11.6 H Lymph # (Auto) 0.9 L [place] # (Auto) 1.0 H Eos # (Auto) 0.3 Baso # (Auto) 0.1 Neutrophils % (Manual) 82 H Lymphocytes % (Manual) 9 L Monocytes % (Manual) 7 Eosinophils % (Manual) 1 Basophils % (Manual) 1 Platelet Estimate Normal RBC Morphology Normal Sodium 151 H Potassium 3.7 Chloride 123 H Carbon Dioxide 20 L Anion Gap 12 BUN 21 H Creatinine 0.7 Est GFR ( Amer) > 60 Est GFR (Non-Af Amer) > 60 POC Glucose (mg/dL) 276 H Random Glucose 212 H Calcium 8.0 L Total Bilirubin 0.7 AST 34 ALT 28 Alkaline Phosphatase 138 H Total Protein 6.4 Albumin 2.9 L Globulin 3.5 Albumin/Globulin Ratio 0.8 L Assessment & Plan (1) Decubitus ulcer, heel, left, unstageable Status: Acute (2) NSTEMI (non-ST elevated myocardial infarction) Status: Acute (3) Renal insufficiency Status: Acute (4) Severe dehydration Status: Acute - Assessment and Plan (Free Text) Assessment: WILL CHECK CT SACRUM TO R/O OM IV RX FOR MIN 14-21 DAYS MAY NEED DEBRIDEMENT POOR PROGNOSIS
--- NOTE | 2017-12-18 16:36 | RAD ---
HISTORY: verify right PICC COMPARISON: Chest x-ray performed 12/13/17 TECHNIQUE: Chest, one view. FINDINGS: Examination limited by habitus and hypoinflation. The patient's chin obscures evaluation of the lung apices, in particular the right lung apex. Right-sided PICC extends the cavoatrial junction. LUNGS: No focal consolidation. Please note that chest x-ray has limited sensitivity for the detection of pulmonary masses. PLEURA: No significant pleural effusion identified. No definite pneumothorax . CARDIOVASCULAR: Cardiomegaly. OSSEOUS STRUCTURES: Degenerative changes. VISUALIZED UPPER ABDOMEN: Right upper quadrant surgical clips. OTHER FINDINGS: None. IMPRESSION: Right-sided PICC extends the cavoatrial junction.
--- NOTE | 2017-12-18 16:45 | CT ---
PROCEDURE: CT pelvis HISTORY: SACRAL ULCER COMPARISON: Not available TECHNIQUE: 2.5 mm contiguous axial sections were acquired from the iliac crests through the perineum, without intravenous or oral contrast administration. Sagittal and coronal images were reformatted from the axial scan. Total exam DLP: 618.06. This CT exam was performed using 1 or more of the following dose reduction techniques: Automated exposure control, adjustment of the mA and/or kV according to patient size, and/or use of iterative reconstruction technique. FINDINGS: There is a sacral decubitus ulcer extending to a depth of approximately 3 cm. Packing material is seen within the ulcer. There is no adjacent abscess. There is ill-defined increased attenuation of the subcutaneous fat around the ulceration site. The ulcer is not contiguous with the coccyx or sacrum. There is no evidence of osteomyelitis on this CT examination. A globular in enlarged uterus is noted containing coarse calcifications, consistent with degenerated calcified fibroids. There are no adnexal masses. The urinary bladder is decompressed around a Gonsalez catheter balloon. Visualized bowel is unremarkable. There is no evidence of ascites. A few shotty inguinal lymph nodes are noted bilaterally. There is no pelvic lymphadenopathy. IMPRESSION: Sacral decubitus ulcer. No evidence of osteomyelitis. No evidence of adjacent abscess. Additional minor findings as above.
[2017-12-18] MEDS: traZODone 25 mg Tab PO SCH (21:34)
[2017-12-18] MEDS: (Lantus) Insulin Glargine, Recombinant SC SCH (22:30)
--- NOTE | 2017-12-18 23:06 | CP.PCM.PN ---
Subjective - Date & Time of Evaluation Date of Evaluation: 12/18/17 Time of Evaluation: 14:25 - Subjective Subjective: Patient seen and evaluated No cardiac events noted Objective - Vital Signs/Intake and Output Vital Signs (last 24 hours): Temp Pulse Resp BP Pulse Ox 98.6 F 75 20 145/72 100 12/18/17 16:00 12/18/17 16:00 12/18/17 16:00 12/18/17 18:29 12/18/17 16:00 Intake and Output: 12/18/17 12/19/17 18:59 06:59 Intake Total 600 680 Output Total 500 200 Balance 100 480 - Medications Medications: Current Medications Ascorbic Acid (Vitamin C 500 Mg Tab) 500 mg PO DAILY [facility] Last Admin: 12/18/17 10:55 Dose: 500 mg Aspirin (Ecotrin) 81 mg PO DAILY [facility] Last Admin: 12/18/17 10:55 Dose: 81 mg Famotidine (Pepcid) 20 mg IVP DAILY [facility] Last Admin: 12/18/17 10:55 Dose: 20 mg Heparin Sodium (Porcine) (Heparin) 5,000 units SC Q12 [facility] Last Admin: 12/18/17 21:34 Dose: 5,000 units Hydralazine HCl (Apresoline) 10 mg IVP Q6H PRN PRN Reason: high blood pressure Dextrose (Dextrose 5% In Water 1000 Ml) 1,000 mls @ 75 mls/hr IV .[id number] [facility] Last Admin: 12/18/17 18:28 Dose: 75 mls/hr Meropenem 1 gm/ Sodium (Chloride) 100 mls @ 100 mls/hr IVPB Q8H [facility] Last Admin: 12/18/17 21:33 Dose: 100 mls/hr Insulin Glargine (Lantus) 10 unit SC HS [facility] Last Admin: 12/17/17 22:46 Dose: 10 units Insulin Human Regular (Novolin R) 0 unit SC ACHS [facility] PRN Reason: Protocol Last Admin: 12/18/17 17:05 Dose: Not Given Medroxyprogesterone Acetate (Provera) 10 mg PO DAILY [facility] Last Admin: 12/18/17 10:55 Dose: 10 mg Megestrol Acetate (Megace) 20 mg PO DAILY [facility] Last Admin: 12/18/17 10:55 Dose: 20 mg Metoprolol Tartrate (Lopressor) 25 mg PO BID [facility] Last Admin: 12/18/17 18:29 Dose: 25 mg Metoprolol Tartrate (Lopressor) 5 mg IVP BID [facility] Last Admin: 12/18/17 18:29 Dose: Not Given Rosuvastatin Calcium (Crestor) 10 mg PO HS [facility] Last Admin: 12/18/17 21:34 Dose: 10 mg Senna/Docusate Sodium (Senokot S 50 Mg-8.6 Mg) 1 tab PO DAILY [facility] Last Admin: 12/18/17 10:55 Dose: 1 tab Trazodone HCl (Desyrel) 25 mg PO HS [facility] Last Admin: 12/18/17 21:34 Dose: 25 mg Vitamin B Complex/Vitamin C (Berocca) 1 tab PO DAILY [facility] Last Admin: 12/18/17 10:55 Dose: 1 tab - Labs Labs: 12/18/17 07:45 12/18/17 07:45 PT 13.8 SECONDS (9.7-12.2) H 12/13/17 20:33 INR 1.2 12/13/17 20:33 APTT 20 SECONDS (21-34) L 12/13/17 20:33
[2017-12-19] MEDS: Meropenem 1 GM in Sodium Chloride 0.9% 100 ML IVPB SCH ×2 (05:08→15:21)
[2017-12-19 07:41] LABS: ALB/GLOB RATIO 0.7 (1.0-2.1); ALBUMIN 2.6 g/dL (3.5-5.0); ALT/SGPT 30 U/L (9-52); AST/SGOT 28 U/L (14-36); BLOOD UREA NITROGEN 18 mg/dL (7-17); CALCIUM 7.7 mg/dl (8.6-10.4); GFR AFRICAN-AMERICAN > 60; GFR NON-AFRICAN AMERICAN > 60; MAGNESIUM 1.8 mg/dL (1.6-2.3)
[2017-12-19 07:49] LABS: BASO # 0.1 K/uL (0.0-0.2); BASO % 0.4 % (0.0-2.0); EOS # 0.3 K/uL (0.0-0.7); HEMOGLOBIN 9.4 g/dL (11.0-16.0); LYMPH # 1.1 K/uL (1.0-4.3); LYMPH % 7.4 % (20.0-40.0); MEAN CELL VOLUME 92.7 fL (81.0-99.0); MEAN CORPUSCULAR HEMOGLOBIN 30.8 pg (27.0-31.0); MEAN CORPUSCULAR HGB CONC 33.2 g/dL (33.0-37.0); MEAN PLATELET VOLUME 8.6 fL (7.2-11.7); MONO # 1.1 K/uL (0.0-0.8); MONO % 7.7 % (0.0-10.0); NEUT # 11.8 K/uL (1.8-7.0); NEUT % 82.5 % (50.0-75.0); PLATELET COUNT 278 K/uL (130-400); RBC 3.04 Mil/uL (3.80-5.20); RED CELL DISTRIBUTION WIDTH 13.4 % (11.5-14.5); WHITE BLOOD COUNT 14.3 K/uL (4.8-10.8)
[2017-12-19] MEDS: (Novolin R) Insulin Human Regular 100 units/ml vial SC SCH ×2 (08:05→12:47)
--- NOTE | 2017-12-19 09:20 | CP.PCM.PN ---
Subjective - Date & Time of Evaluation Date of Evaluation: 12/19/17 Time of Evaluation: 07:20 - Subjective Subjective: PGY2 Medicine note for Dr. Ruth; all management as per Dr. Ruth Patient seen and examined at bedside. Patient resting comfortably. Patient does not follow simple commands. She continues to turn and shift her gaze when spoken to, but fails to speak or interact. Her son recently met with Peggy and decided on conservative measures - only IV tx for infections; No aggressive treatments. Patient is DNR/DNI. Further ROS could not be obtained. Objective - Vital Signs/Intake and Output Vital Signs (last 24 hours): Temp Pulse Resp BP Pulse Ox 98.1 F 83 20 133/75 98 12/19/17 07:00 12/19/17 07:00 12/19/17 07:00 12/19/17 07:00 12/19/17 07:00 Intake and Output: 12/19/17 12/19/17 06:59 18:59 Intake Total 680 Output Total 200 Balance 480 - Medications Medications: Current Medications Ascorbic Acid (Vitamin C 500 Mg Tab) 500 mg PO DAILY [facility] Last Admin: 12/18/17 10:55 Dose: 500 mg Aspirin (Ecotrin) 81 mg PO DAILY [facility] Last Admin: 12/18/17 10:55 Dose: 81 mg Famotidine (Pepcid) 20 mg IVP DAILY [facility] Last Admin: 12/18/17 10:55 Dose: 20 mg Heparin Sodium (Porcine) (Heparin) 5,000 units SC Q12 [facility] Last Admin: 12/18/17 21:34 Dose: 5,000 units Hydralazine HCl (Apresoline) 10 mg IVP Q6H PRN PRN Reason: high blood pressure Dextrose (Dextrose 5% In Water 1000 Ml) 1,000 mls @ 75 mls/hr IV .[id number] [facility] Last Admin: 12/19/17 01:54 Dose: Not Given Meropenem 1 gm/ Sodium (Chloride) 100 mls @ 100 mls/hr IVPB Q8H [facility] Last Admin: 12/19/17 05:08 Dose: 100 mls/hr Insulin Glargine (Lantus) 10 unit SC HS [facility] Last Admin: 12/18/17 22:30 Dose: 10 units Insulin Human Regular (Novolin R) 0 unit SC ACHS [facility] PRN Reason: Protocol Last Admin: 12/18/17 22:22 Dose: Not Given Medroxyprogesterone Acetate (Provera) 10 mg PO DAILY [facility] Last Admin: 12/18/17 10:55 Dose: 10 mg Megestrol Acetate (Megace) 20 mg PO DAILY [facility] Last Admin: 12/18/17 10:55 Dose: 20 mg Metoprolol Tartrate (Lopressor) 25 mg PO BID [facility] Last Admin: 12/18/17 18:29 Dose: 25 mg Metoprolol Tartrate (Lopressor) 5 mg IVP BID [facility] Last Admin: 12/18/17 18:29 Dose: Not Given Rosuvastatin Calcium (Crestor) 10 mg PO HS [facility] Last Admin: 12/18/17 21:34 Dose: 10 mg Senna/Docusate Sodium (Senokot S 50 Mg-8.6 Mg) 1 tab PO DAILY [facility] Last Admin: 12/18/17 10:55 Dose: 1 tab Trazodone HCl (Desyrel) 25 mg PO [facility] Last Admin: 12/18/17 21:34 Dose: 25 mg Vitamin B Complex/Vitamin C (Berocca) 1 tab PO DAILY [facility] Last Admin: 12/18/17 10:55 Dose: 1 tab - Labs Labs: 12/19/17 07:16 12/19/17 07:16 PT 13.8 SECONDS (9.7-12.2) H 12/13/17 20:33 INR 1.2 12/13/17 20:33 APTT 20 SECONDS (21-34) L 12/13/17 20:33 - Additional Findings Additional findings: - Constitutional Appears: Non-toxic, No acute distress - Head Exam Head Exam: ATRAUMATIC, Normocephalic - Eye Exam Eye Exam: EOMI - ENT Exam ENT Exam: Mucous Membranes Moist - Neck Exam Neck Exam: absent: Lymphadenopathy - Respiratory Exam Respiratory Exam: Clear to Ausculation Bilateral. absent: Wheezes, Rhonchi - Cardiovascular Exam Cardiovascular Exam: REGULAR RHYTHM, S1, S2 - GI/Abdominal Exam GI & Abdominal Exam: Normal Bowel Sounds - Extremities Exam Extremities Exam: absent: Calf Tenderness - Back Exam Back Exam: absent: CVA tenderness (L), CVA tenderness (R) note: sacral wound, clean - Neurological Exam Neurological Exam: Alert (lethargic), Awake - Skin Skin Exam: Warm, Dry heel wound, clean Assessment and Plan - Assessment and Plan (Free Text) Assessment: 77yo F admitted for AMS AMS 12/18-12/19: f/u echo, official read pending -most likely 2/2 to MODS 2/2 to UTI/wound infection -BUN and [employer] Markedly elevated; troponin elevated; patient is non responsive to commands and only responds to pain -patient has many open sores/wounds; will be cultured; f/u -patient is on abx; Vancomycin and Pip/Tazo; will continue -blood cultures negative to date Pressure Ulcers 12/19: Stopped Zosyn. Started Meropenem 1G IVPB Q8H (for 14-21 days minimum; to be completed 01/01 - 01/08). CT Sacrum - negative for osteomyelitis. see full report. PICC in place. 12/18: wound culture - ESBL+ e. coli; Consult ID, Dr. Alicia, f/u recs. -f/u wound care recs -c/w abx -reposition every 2 hours Elevated Troponins -most likely 2/2 to MODS -f/u echo -cardiology is on board; Dr. Hutton; thank you for your help Elevated BUN/Creatinine 12/19: BUN/Cr WNL; monitor -Dr. Ballard Nephrology; thank you for your help; will f/u recommendations -BUN decreased -will change fluid to 1/2 normal saline given increasing sodium levels; will trend -f/u renal US Hx of HTN -c/w home meds Hx of DM -c/w insulin dosing -keep BS between 140-180 Hx of HLD -hold home meds for now 2/2 to liver dysfunction Hx of Poor appetite -c/w with appetite increasing medication - Megace Hx of dementia like symptoms -son states patient waxes and wanes between making sense and not over the past year or so -[facility] (2 weeks ago) son states has not been same since -patient unable to render care for self and has multiple wounds from pressure sites Electrolyte Imbalance HypoKalemia, K 3.5 - KCL 40 Hypophosphatemia, P 1.8 - neutraphos TID (3 doses total) Proph -DNR/DNI; conversation with son stated he wants nothing extreme done for mother ; palliative care consult placed; Peggy, f/u recs; family meeting today 10am -Pepcid; will hold protonix in lieu of ARF -Heparin SC [place]: Poor All management as per Dr. Ruth
[2017-12-19] MEDS ORDERED: Potassium Chloride 20 mEq/15 ml LIQ UD PO ONE (10:00)
[2017-12-19 10:39] LABS: LYMPHOCYTE 6 % (20-40); MONOCYTE 6 % (0-10); NEUTROPHIL 88 % (50-75); PLATELET ESTIMATE NORMAL (NORMAL); TOTAL CELLS COUNTED 100
[2017-12-19 10:41] LABS: OVALOCYTES SLIGHT
--- NOTE | 2017-12-19 11:07 | CP.PCM.PN ---
Subjective - Date & Time of Evaluation Date of Evaluation: 12/19/17 Time of Evaluation: 08:00 - Subjective Subjective: improving afebrile nad Objective - Vital Signs/Intake and Output Vital Signs (last 24 hours): Temp Pulse Resp BP Pulse Ox 98.1 F 83 20 133/75 98 12/19/17 07:00 12/19/17 07:00 12/19/17 07:00 12/19/17 07:00 12/19/17 07:00 Intake and Output: 12/19/17 12/19/17 06:59 18:59 Intake Total 680 30 Output Total 200 Balance 480 30 - Medications Medications: Current Medications Ascorbic Acid (Vitamin C 500 Mg Tab) 500 mg PO DAILY [facility] Last Admin: 12/18/17 10:55 Dose: 500 mg Aspirin (Ecotrin) 81 mg PO DAILY [facility] Last Admin: 12/18/17 10:55 Dose: 81 mg Famotidine (Pepcid) 20 mg IVP DAILY [facility] Last Admin: 12/18/17 10:55 Dose: 20 mg Heparin Sodium (Porcine) (Heparin) 5,000 units SC Q12 [facility] Last Admin: 12/18/17 21:34 Dose: 5,000 units Hydralazine HCl (Apresoline) 10 mg IVP Q6H PRN PRN Reason: high blood pressure Dextrose (Dextrose 5% In Water 1000 Ml) 1,000 mls @ 75 mls/hr IV .[id number] [facility] Last Admin: 12/19/17 01:54 Dose: Not Given Meropenem 1 gm/ Sodium (Chloride) 100 mls @ 100 mls/hr IVPB Q8H [facility] Last Admin: 12/19/17 05:08 Dose: 100 mls/hr Insulin Glargine (Lantus) 10 unit SC HS [facility] Last Admin: 12/18/17 22:30 Dose: 10 units Insulin Human Regular (Novolin R) 0 unit SC ACHS [facility] PRN Reason: Protocol Last Admin: 12/18/17 22:22 Dose: Not Given Medroxyprogesterone Acetate (Provera) 10 mg PO DAILY [facility] Last Admin: 12/18/17 10:55 Dose: 10 mg Megestrol Acetate (Megace) 20 mg PO DAILY [facility] Last Admin: 12/18/17 10:55 Dose: 20 mg Metoprolol Tartrate (Lopressor) 25 mg PO BID [facility] Last Admin: 12/18/17 18:29 Dose: 25 mg Metoprolol Tartrate (Lopressor) 5 mg IVP BID [facility] Last Admin: 12/18/17 18:29 Dose: Not Given Potassium Phos/Sodium Phos (Neutra-Phos) 1 pkt PO TID [facility] Stop: 12/19/17 18:01 Rosuvastatin Calcium (Crestor) 10 mg PO HS [facility] Last Admin: 12/18/17 21:34 Dose: 10 mg Senna/Docusate Sodium (Senokot S 50 Mg-8.6 Mg) 1 tab PO DAILY [facility] Last Admin: 12/18/17 10:55 Dose: 1 tab Trazodone HCl (Desyrel) 25 mg PO [facility] Last Admin: 12/18/17 21:34 Dose: 25 mg Vitamin B Complex/Vitamin C (Berocca) 1 tab PO DAILY [facility] Last Admin: 12/18/17 10:55 Dose: 1 tab - Labs Labs: 12/19/17 07:16 12/19/17 07:16 PT 13.8 SECONDS (9.7-12.2) H 12/13/17 20:33 INR 1.2 12/13/17 20:33 APTT 20 SECONDS (21-34) L 12/13/17 20:33 - Constitutional Appears: Non-toxic, Cachectic, Chronically Ill - Head Exam Head Exam: NORMOCEPHALIC - Eye Exam Eye Exam: absent: Scleral icterus Pupil Exam: NORMAL ACCOMODATION - ENT Exam ENT Exam: Mucous Membranes Dry - Neck Exam Neck Exam: absent: Lymphadenopathy - Respiratory Exam Respiratory Exam: Decreased Breath Sounds, Rhonchi - Cardiovascular Exam Cardiovascular Exam: REGULAR RHYTHM, +S1, +S2 - GI/Abdominal Exam GI & Abdominal Exam: Distended, Soft. absent: Tenderness - Rectal Exam Rectal Exam: Deferred - Extremities Exam Extremities Exam: absent: Pedal Edema - Back Exam Back Exam: absent: CVA tenderness (L), CVA tenderness (R) - Neurological Exam Neurological Exam: Alert, Awake, Oriented x3 - Psychiatric Exam Psychiatric exam: Depressed - Skin Skin Exam: Dry. absent: Intact Assessment and Plan (1) Decubitus ulcer, heel, left, unstageable Status: Acute (2) NSTEMI (non-ST elevated myocardial infarction) Status: Acute (3) Renal insufficiency Status: Acute (4) Severe dehydration Status: Acute - Assessment and Plan (Free Text) Assessment: wound care in progress may need debridement check ct for OM sacrum IV rx ordered
[2017-12-19] MEDS: Megestrol Acetate 40 mg/ml Cup PO SCH (12:45)
[2017-12-19] MEDS: Potassium & Sodium Phosphate PO SCH ×2 (12:45→15:20)
[2017-12-19] MEDS: Docusate-Senna 50 mg-8.6 mg Tab PO SCH (12:45)
[2017-12-19] MEDS: Vitamin B Complex/Vitamin C Tab PO SCH (12:46)
[2017-12-19] MEDS: Metoprolol 1 mg/ml Inj IVP SCH (12:47)
--- NOTE | 2017-12-19 14:19 | CP.PCM.PN ---
Subjective - Date & Time of Evaluation Date of Evaluation: 12/19/17 Time of Evaluation: 14:19 - Subjective Subjective: dictated Objective - Vital Signs/Intake and Output Vital Signs (last 24 hours): Temp Pulse Resp BP Pulse Ox 98.1 F 83 20 133/78 98 12/19/17 07:00 12/19/17 07:00 12/19/17 07:00 12/19/17 12:48 12/19/17 07:00 Intake and Output: 12/19/17 12/19/17 06:59 18:59 Intake Total 680 30 Output Total 200 Balance 480 30 - Medications Medications: Current Medications Ascorbic Acid (Vitamin C 500 Mg Tab) 500 mg PO DAILY [facility] Last Admin: 12/19/17 12:45 Dose: 500 mg Aspirin (Ecotrin) 81 mg PO DAILY [facility] Last Admin: 12/19/17 12:46 Dose: 81 mg Famotidine (Pepcid) 20 mg PO BID [facility] Heparin Sodium (Porcine) (Heparin) 5,000 units SC Q12 [facility] Last Admin: 12/19/17 12:46 Dose: 5,000 units Hydralazine HCl (Apresoline) 10 mg IVP Q6H PRN PRN Reason: high blood pressure Dextrose (Dextrose 5% In Water 1000 Ml) 1,000 mls @ 75 mls/hr IV .[id number] [facility] Last Admin: 12/19/17 01:54 Dose: Not Given Meropenem 1 gm/ Sodium (Chloride) 100 mls @ 100 mls/hr IVPB Q8H [facility] Last Admin: 12/19/17 05:08 Dose: 100 mls/hr Insulin Glargine (Lantus) 10 unit SC HS [facility] Last Admin: 12/18/17 22:30 Dose: 10 units Insulin Human Regular (Novolin R) 0 unit SC ACHS [facility] PRN Reason: Protocol Last Admin: 12/19/17 12:47 Dose: Not Given Medroxyprogesterone Acetate (Provera) 10 mg PO DAILY [facility] Last Admin: 12/19/17 12:45 Dose: 10 mg Megestrol Acetate (Megace) 20 mg PO DAILY [facility] Last Admin: 12/19/17 12:45 Dose: 20 mg Metoprolol Tartrate (Lopressor) 25 mg PO BID [facility] Last Admin: 12/19/17 12:48 Dose: 25 mg Metoprolol Tartrate (Lopressor) 5 mg IVP BID [facility] Last Admin: 12/19/17 12:47 Dose: Not Given Potassium Phos/Sodium Phos (Neutra-Phos) 1 pkt PO TID [facility] Stop: 12/19/17 18:01 Last Admin: 12/19/17 12:45 Dose: 1 pkt Rosuvastatin Calcium (Crestor) 10 mg PO HS [facility] Last Admin: 12/18/17 21:34 Dose: 10 mg Senna/Docusate Sodium (Senokot S 50 Mg-8.6 Mg) 1 tab PO DAILY [facility] Last Admin: 12/19/17 12:45 Dose: 1 tab Trazodone HCl (Desyrel) 25 mg PO HS [facility] Last Admin: 12/18/17 21:34 Dose: 25 mg Vitamin B Complex/Vitamin C (Berocca) 1 tab PO DAILY [facility] Last Admin: 12/19/17 12:46 Dose: 1 tab - Labs Labs: 12/19/17 07:16 12/19/17 07:16 PT 13.8 SECONDS (9.7-12.2) H 12/13/17 20:33 INR 1.2 12/13/17 20:33 APTT 20 SECONDS (21-34) L 12/13/17 20:33
[2017-12-19 15:41] VITALS: BP 127/80; PULSE 79; TEMP 98.4; O2SAT 95
--- NOTE | 2017-12-20 10:23 | PN ---
SUBJECTIVE: The patient is in bed and she is receiving change in dressing of multiple bedsores that has been present. The patient appeared to be chronically ill, debilitated, with multiple bedsores. PHYSICAL EXAMINATION: VITAL SIGNS: Stable. Temperature 98.1 with the blood pressure 133/78, pulse 83. CHEST: Few rhonchi. HEART: No rubs. ABDOMEN: Soft. EXTREMITIES: No pitting edema. LABORATORY DATA: Serum sodium continued to improve as of today, serum sodium came down to 147, from as high as 156 with significant improvement. Chloride came down from 126 to 120, serum potassium is slightly low at 3.5. Kidney function was stable. IMPRESSION AND PLAN: 1. Hypernatremia, improving and almost recovering. 3. Hypokalemia, the patient needs potassium supplement. 3. Hyperkalemia, continue treatment with D5W as before. 4. Hypernatremia and kidney function are recovering from acute kidney injury. Charles Ballard MD
--- NOTE | 2017-12-22 06:58 | DS ---
HOSPITAL COURSE: Ms. Louis was admitted to the hospital with a chief complaint of dehydration, weakness, UTI. The patient got IV fluids and antibiotics. The patient showed very slow improvement. Urine culture showed ESBL positive. Antibiotics changed and transferred to the [place] [facility] IV antibiotic. DIAGNOSES: Urosepsis, renal failure, dehydration. Dami Ruth MD
== END 2017-12-19 16:34 | disposition home or self-care (01) | DRG 689 ==
LOC: C.ER 20:10 → C.9E 21:31 → C.5S 12-14 06:00
PROVIDERS: ADMIT Internal Medicine Pulmonary Disease; ATTEND Internal Medicine Pulmonary Disease
PROC: 02HV33Z Insertion of Infusion Device into Superior Vena Cava, Percutaneous Approach (ICD-10-PCS; principal; 2017-12-18)
DX: N39.0 Urinary tract infection, site not specified (principal); I21.4 Non-ST elevation (NSTEMI) myocardial infarction; L89.159 Pressure ulcer of sacral region, unspecified stage; N17.9 Acute kidney failure, unspecified; E87.0 Hyperosmolality and hypernatremia; L89.620 Pressure ulcer of left heel, unstageable; E11.65 Type 2 diabetes mellitus with hyperglycemia; E87.5 Hyperkalemia; D64.9 Anemia, unspecified; E86.0 Dehydration; E78.5 Hyperlipidemia, unspecified; E83.39 Other disorders of phosphorus metabolism; E87.6 Hypokalemia; F03.90 Unspecified dementia, unspecified severity, without behavioral disturbance, psychotic disturbance, mood disturbance, and anxiety; I10 Essential (primary) hypertension; I25.10 Atherosclerotic heart disease of native coronary artery without angina pectoris; N28.1 Cyst of kidney, acquired; R32 Unspecified urinary incontinence; B96.20 Unspecified Escherichia coli [E. coli] as the cause of diseases classified elsewhere; Z16.12 Extended spectrum beta lactamase (ESBL) resistance; E78.00 Pure hypercholesterolemia, unspecified; K76.89 Other specified diseases of liver; Z66 Do not resuscitate; Z86.73 Personal history of transient ischemic attack (TIA), and cerebral infarction without residual deficits; Z87.440 Personal history of urinary (tract) infections; Z23 Encounter for immunization; Z90.49 Acquired absence of other specified parts of digestive tract